=== PATIENT | female | born 1945 | race Caucasian/White ===

== ENCOUNTER → 2017-09-17 07:05 | Outpatient (CLI) | payer OTHER, SELFPAY ==
[2017-09-17 10:21] LABS: Alanine Aminotransferase 33 IU/L (9-52); Aspartate Aminotransferase 36 IU/L (14-36); BUN Creatinine Ratio 25.7 (6-22); Blood Urea Nitrogen 18 mg/dL (7-17); Calcium 9.7 mg/dL (8.4-10.2); Carbon Dioxide 32 mmol/L (22-32); Chloride 100 mmol/L (98-107); Cholesterol 164 mg/dL (140-199); Estimated Glomerular Filt Rate > 60.0 mL/min (>60); Glucose 75 mg/dL (80-110); HDL Cholesterol 68 mg/dL (40-60); HEMOLYSIS < 15 (0-50); LDL Cholesterol Calculated 75 mg/dL (<100); Potassium 4.7 mmol/L (3.4-5.1); Sodium 141 mmol/L (137-145); Triglycerides 106 mg/dL (35-150)
[2017-09-17 10:57] LABS: Vitamin B12 419 pg/mL (239-931)
== END ==
PROVIDERS: PCP Internal Medicine; Visit Provider Internal Medicine
DX: Z00.00 Encounter for general adult medical examination without abnormal findings (principal); E78.5 Hyperlipidemia, unspecified; R20.2 Paresthesia of skin
CPT/HCPCS: 36415; 80048; 80061; 82607; 84450; 84460

== ENCOUNTER → 2017-12-23 11:35 | Outpatient (CLI) | payer OTHER, SELFPAY ==
--- NOTE | 2017-12-23 | DI.MRI.S_ITS ---
PROCEDURE: MR KNEE RT WO CON INDICATIONS: CHRONIC PAIN OF RIGHT KNEE TECHNIQUE: Noncontrast sagittal PD fast spin echo and T2 fast spin echo with fat saturation, sagittal 3-D FLASH with fat saturation; coronal T1 spin echo and PD fast spin echo with fat saturation, and axial PD fast spin echo with fat saturation through the knee. COMPARISON: [facility] [place], CR, XR KNEE ARTHRITIC SERIES RT, 10/15/2017, 15:46. FINDINGS: Image quality: Diagnostic. Bones and joint: There is no acute fracture or dislocation. No suspicious osseous lesions are evident. There is a small moderate-sized knee joint effusion with an associated Sullivan's cyst. Moderate to severe tricompartmental degenerative changes of the knee are best appreciated within the lateral and patellofemoral compartments. A large full-thickness cartilaginous defects are identified with areas of degenerative/reactive marrow change and developing large marginal osteophytes within these 2 compartments. Extensive irregularity of the cartilage within the medial compartment also is present. Spurring of the tibial spines and marginal osteophytes within the femoral notch are also present. Cruciate ligaments: The anterior and posterior cruciate ligaments are intact. Menisci: Extensive tearing of the anterior horn and body of the lateral meniscus is evident. Abnormal signal through the posterior horn of the lateral meniscus is present. There is degenerative signal of the medial meniscus without a discrete medial meniscal tear evident. Medial structures: The medial collateral ligament is intact. Thickening of the medial collateral ligament is suggestive of scarring. The semimembranosus tendon insertion is intact. There may be fluid contained within the distal semimembranosus bursa. The imaged portions of the pes anserinus tendons are unremarkable. No significant fluid is contained within the pes anserinus bursa. Lateral structures: Partial-thickness tearing involving the popliteal tendon origin is noted with associated tendinopathy. The lateral collateral ligament proper (fibular collateral ligament) and the proximal tibiofibular ligaments are intact. The distal aspect of the biceps femoris tendon and the iliotibial band are intact. Anterior structures: The quadriceps and patellar tendons are intact. Thickening and increased signal is identified involving the proximal and distal margins of the patellar tendon. There is again identified within the infrapatellar fat pad. Mild prepatellar bursal edema is also present. IMPRESSION: 1. Moderate to severe degenerative changes of the knee are most pronounced within the medial and patellofemoral compartments. 2. Small moderate-sized knee joint effusion with an associated Sullivan cyst. 3. Complex tearing involving the anterior horn and body of the lateral meniscus. 4. Degenerative signal of the medial meniscus without a discrete tear evident. 5. Over partial-thickness tearing and tendinopathy involving the origin of the popliteal tendon. 6. Mild patellar tendinopathy. 7. Scarring of the medial collateral ligament. Dictated by: Aroldo Shields M.D. on 12/23/2017 at 16:08 Approved by: Aroldo Shields M.D. on 12/23/2017 at 16:13
== END ==
PROVIDERS: PCP Internal Medicine; Visit Provider Orthopaedic Surgery
DX: S83.271A Complex tear of lateral meniscus, current injury, right knee, initial encounter (principal); M17.11 Unilateral primary osteoarthritis, right knee; S86.811A Strain of other muscle(s) and tendon(s) at lower leg level, right leg, initial encounter; M25.561 Pain in right knee; M25.461 Effusion, right knee; M71.21 Synovial cyst of popliteal space [Baker], right knee; G89.29 Other chronic pain
CPT/HCPCS: 73721

== ENCOUNTER → 2018-05-22 15:12 | Outpatient (CLI) | payer MEDICARE, SELFPAY ==
[2018-05-22 15:47] LABS: Add Manual Diff / Slide Review NO; Basophils Absolute Auto 100 /uL (0-100); Basophils Percent Auto 0.8 % (0-2); Eosinophils Absolute Auto 100 /uL (0-450); Eosinophils Percent Auto 1.4 % (2-4); Hematocrit 33.9 % (36-46); Hemoglobin 11.4 g/dL (12.0-16.0); Lymphocytes Absolute Auto 2200 /uL (1100-4500); Lymphocytes Percent Auto 35.3 % (25-40); Mean Corpuscular HGB Conc 33.7 % (30-36); Mean Corpuscular Hemoglobin 30.2 PG (26-34); Mean Corpuscular Volume 89.6 fL (80-100); Monocytes Absolute Auto 700 /uL (0-900); Neutrophils Absolute Auto 3200 /uL (1500-7000); Neutrophils Percent Auto 51.5 % (50-75); Platelet Count 257 X10^3/uL (150-400); Red Blood Cell Count 3.79 X10^6/uL (4.0-5.2); Red Cell Distribution Width 14.3 % (11.6-14.8); White Blood Cell Count 6.2 X10^3/uL (4.5-11.0)
== END ==
PROVIDERS: Family Provider Internal Medicine; PCP Internal Medicine; Visit Provider Physician Assistant Surgical
DX: Z01.812 Encounter for preprocedural laboratory examination (principal)
CPT/HCPCS: 36415; 85025

== ENCOUNTER 2018-06-09 06:13 | Day surgery (SDC) | payer MEDICARE, SELFPAY ==
[2018-05-26 08:49] VITALS: BMI 22.8
[2018-06-09] VITALS (16 sets, daily range): BP systolic 97–133; BP diastolic 47–75; PULSE 62–75; RESP 9–16; TEMP 36.1–36.8; O2SAT 95–100; BMI 22.2
--- NOTE | 2018-06-09 06:00 | DI.RAD.S_ITS ---
PROCEDURE: XR KNEE RT 1TO2V INDICATIONS: post op films TECHNIQUE: 2 view(s) of the knee acquired. COMPARISON: [facility], MR, MR KNEE RT WO CON, 12/23/2017, 11:56. [facility] [place], CR, XR KNEE ARTHRITIC SERIES RT, 10/15/2017, 15:46. FINDINGS: Bones: Patient is status post knee joint arthroplasty. Hardware components are in expected positions. Visualized bony structures are intact. Soft tissues: Overlying postoperative changes are noted. IMPRESSION: Status post knee arthroplasty as above. Dictated by: Lindsay Arrington M.D. on 06/09/2018 at 10:26 Approved by: Lindsay Arrnigton M.D. on 06/09/2018 at 10:26
[2018-06-09] MEDS: ACETAMINOPHEN 325 MG TABLET 975 MG PO ×2 (06:52→20:37)
[2018-06-09] MEDS: CELECOXIB 200 MG CAPSULE PO (06:53)
[2018-06-09] MEDS: PREGABALIN 75 MG CAPSULE PO (06:53)
[2018-06-09] MEDS: LACTATED RINGERS 1,000 ML 42 ML IV ×2 (06:55→10:11)
[2018-06-09] MEDS: VANCOMYCIN 1,000 MG/200 ML FROZ.PIGGY 200 MG IV (06:59)
--- NOTE | 2018-06-09 07:13 | SUR.PREOP ---
pt reports occassionally has numbness in bilateral feet. pt reports Dr. Mcleod aware. At this time, pt reports no numbness.
--- NOTE | 2018-06-09 07:52 | PM.PREOP ---
Pre-operative Note Interval Note History & Physical reviewed/Exam performed by Physician: Yes Changes to H&P: No
--- NOTE | 2018-06-09 07:53 | PM.OP.1 ---
Operative Date/Time/Diagnoses Date of procedure: 06/09/18 Time of procedure: 07:59 Pre-op diagnosis: Severe right knee osteoarthritis Post-op diagnosis: same Procedure & Clinicians Procedure: Right total knee arthroplasty Same procedure as scheduled: Yes Indications: The patient has had progressively worsening right knee pain with radiographic changes consistent with arthritis. Non-operative management has failed and the patient has requested total knee replacement. The risks, benefits and alternatives to surgery were discussed with the patient prior to proceeding. Risks discussed included, but were not limited to, failure to relieve pain, stiffness, infection, nerve damage, deep venous thrombosis, pulmonary embolism, stroke, coma, heart attack, permanent paralysis and , as well as the potential need for eventual revision of the prosthetic. Surgeon: Maricel Mcleod Horticulture/Floriculture Teacher: Linda Ventura Anesthesia Type: General and Spinal Operative Notes Findings: Severe left knee osteoarthritis with valgus deformity, good stability Closure Type: primary Specimen(s): none sent Prosthetic devices, grafts, tissues, transplants, or devices: Mcle[employer] BCS 2 size 5 femur, size 3 tibia, +9 poly, 35 x 7.5 mm oval patella Applied: drain(s) Estimated Blood Loss (mL): 250 Blood products transfused: none Tourniquet time (min): 68 Procedure in detail: The patient was seen in the pre-operative area, where the patient identified the right knee as the operative site and this was marked with my initials. The patient received pre-operative antibiotics, and was taken to the operating room and placed on the operative table in the supine position. After satisfactory anesthesia, a multimedia author out was performed. The right leg was encircled with a tourniquet about the proximal thigh, and the leg was prepared from the toes to the tourniquet with ChloroPrep in the usual fashion and draped through sterile drapes. The leg was elevated and exsanguinated with Eschmark bandage and the tourniquet inflated to [250] mmHg pressure. The knee was approached through an approximately 18 cm incision centered over the patella and carried into the knee through a medial parapatellar arthrotomy. Portion of the medial and lateral meniscus was resected. Soft tissue was carefully mobilized around the patella the patella was measured with a caliper. Bone was resected from the patella and the patellar height was reconstituted with up an appropriate sized patellar component. A cover was then placed on the patella. A small amount of additional medial and lateral meniscus was resected. The visionare guide fit well to the distal femur. It looked like an appropriate distal femoral cut and the cut was made without difficulty. The rotation was assessed and the appropriate size femoral guide was placed on the distal femur and finishing cuts were made. There was no evidence of notching. The anterior, posterior and chamfer cuts were then made. The posterior osteophytes and soft tissues were then removed. The posterior capsule was injected with part of a mixture of 60 ml 0.25% Marcaine mixed with 20 ml Exparel for post operative pain control. The remainder of this mixture was injected into the capsule and subcutaneous tissues during cement curing. The tibia was prepared and the visionaire guide fit well to the distal tibia. The rotation was assessed. The patient was placed in extension residual medial and lateral meniscus as well as any residual bone was carefully resected. [No] additional tibia was resected. Hemostasis was achieved especially posteriorly. Additional local was injected into the posterior capsule. The extension gap was assessed and additional releases for gap balancing were performed as necessary. The femoral component was trial was placed and the notch was finished. Trial tibial and femoral components were then placed and the knee placed through a range of motion. Range of motion was [0-130], with good stability throughout the range. The trials were then removed, and the tibia was finished. The bone was prepared with pulsatile lavage, and dried with a sponge. Cement was applied and the final prosthetics placed. Excess cement was removed during and after cement curing. A brief Betadine soak was performed. After confirming there was no extruded cement posteriorly, the final tibial insert was placed. The knee was copiously irrigated and the tourniquet deflated. Hemostasis was obtained with the [bovie]. A drain was placed and brought out superolaterally. The capsule was closed with interrupted Vicryl. The subcutaneous layer was closed with barbed sutures, and the skin with a running 3-0 V-Lock suture and Surgical glue. An Aquacel Ag dressing was applied and the patient was taken to recovery having tolerated the procedure well. Complications: none Condition: stable Disposition: Acute Care Plan for aftercare: The patient will be maintained on a standard total knee replacement protocol with weight bearing as tolerated. The patient will receive aspirin and sequential compression devices for DVT prophylaxis. The patient will be discharged home when safe for the home environment.
[2018-06-09] MEDS: CEFAZOLIN 2 GM/100 ML FROZ.PIGGY IV ×3 (08:00→23:37)
[2018-06-09] MEDS: TRANEXAMIC ACID 1,000 MG VIAL 1000 MG INJ ×2 (08:00→09:22)
--- NOTE | 2018-06-09 08:18 | SUR.OPER ---
Supine on padded OR bed. Pillow under head, arms secured on padded armboards <90 degree abduction. Safety belt across torso. Non-operative leg secured with tape over blanket over lower leg. Operative leg secured in DeMayo/Shola positioner. Foam padded brace at thigh of operative leg.
[2018-06-09] MEDS: BUPIVACAINE LIPOSOME 266 MG/20 ML VIAL INJ (08:23)
[2018-06-09] MEDS: BUPIVACAINE 0.25% W/ EPI (PF) 10 ML VIAL INJ (08:25)
[2018-06-09] MEDS: POVIDONE-IODINE 15 ML, SODIUM CHLORIDE 0.9% 250 ML TOP (08:28)
[2018-06-09] MEDS: HYDROMORPHONE 2 MG INJ 0.5 MG IV ×2 (10:05→10:14)
--- NOTE | 2018-06-09 10:53 | SUR.PHASEI ---
Stable PACU stay, report called to geetha Centeno transported to room 213 and left in stable condition.
[2018-06-09] MEDS: LACTATED RINGERS 1,000 ML 125 ML IV ×2 (11:32→20:35)
[2018-06-09] MEDS: ONDANSETRON 4 MG/2 ML INJ IV ×2 (11:38→16:27)
[2018-06-09] MEDS: METOCLOPRAMIDE 10 MG/2 ML INJ IV (14:45)
--- NOTE | 2018-06-09 15:13 | PC.NURSE ---
Bladder scan done @ 0116 - 069 cc.
--- NOTE | 2018-06-09 15:54 | PT.IIE ---
Current Diagnoses Unilateral primary osteoarthritis, right knee (06/09/18) Surgery Performed Operation Date: 06/09/18 07:45 Actual Procedures p Total Knee Arthroplasty(Right) - Maricel Mcleod MD Surgical History (Last Updated 05/26/18 @ 09:16 by Renetta Lenz, RN) Hx of arthroscopy of right knee (Acute ~2003) Hx of cholecystectomy (Acute) Hx of dilation and curettage (Acute) Hx of eye surgery (Acute) Hx of eye surgery (Acute ~08/2017) Hx of repair of patent ductus arteriosus (Acute ~1949) Status post bilateral cataract extraction (Acute) History of carpal tunnel repair Status post cholecystectomy Medical History (Last Updated 05/26/18 @ 09:19 by Renetta Lenz RN) BCC (basal cell carcinoma), face (Acute) GERD (gastroesophageal reflux disease) (Acute) HLD (hyperlipidemia) (Acute) HTN (hypertension) (Acute) Hemorrhoids (Acute) Lower back pain (Acute) Neuropathy (Acute) Osteoarthritis (Acute) Prolapsed bladder (Acute) Vertigo (Acute ~2013) Physical Therapy Inpatient Evaluation/Re-Eval M1 PT/OT-IP Prior Functional Status Start: 06/09/18 17:29 Freq: NEEDED Status: Active Protocol: Document 06/09/18 15:54 AB (Rec: 06/09/18 17:40 AB [id number]) Medical Review Prior Functional Status Medical History Reviewed Yes Communication able to make needs known Mobility and Gait pt stated that she is independent with all mobilities and ambulation without AD Social History Household Members spouse Living Arrangements House Number of Floors (Floors) One Floor Number of Stairs To Enter/Railing? 3 steps to enter with R rail ascending Home Environment Standard Height Toilet Walk in Shower Home Equipment Front Wheel Walker Straight Cane Raised Toilet Seat Without Armrests Shower Seat without Backrest Employment Status Retired M2 PT-IP Current Condition Start: 06/09/18 17:29 Freq: NEEDED Status: Active Protocol: Document 06/09/18 15:54 AB (Rec: 06/09/18 17:40 AB [id number]) Physical Therapy Current Condition Current Condition Evaluation Date 06/09/18 Treatment Diagnosis s/p R TKA; difficulty in walking Onset Date 06/09/18 Weight Bearing Status Weight Bearing Status Weight Bear as Tolerated M3 PT-IP Subjective Start: 06/09/18 17:29 Freq: NEEDED Status: Active Protocol: Document 06/09/18 15:54 AB (Rec: 06/09/18 17:40 AB [id number]) Subjective Physical Therapy Visit Type Type Initial Evaluation Visit Start Time 15:54 Visit Stop Time 16:40 Total Visit Minutes 46 Number of FIELD SECRETARY Visits 0 Physical Therapy Visit Comments Patient Comments c/o nausea but agreed to get up Therapy Pain Assessment Pain Present Pain Present Denied Pain M4 PT-IP Mobility and Gait Start: 06/09/18 17:29 Freq: NEEDED Status: Active Protocol: Document 06/09/18 15:54 AB (Rec: 06/09/18 17:40 AB [id number]) PT-Bed Mobility Assessment Supine to Sit Supine to Sit Standby Assistance Sit to Supine Sit to Supine Standby Assistance PT-Transfer Assessment Sit to and From Stand Sit to and from Stand Contact Guard Assistance Equipment Transfer Assistive Device Gait Belt Front Wheeled Walker Orthotic/Prosthetic Devices or Brace: No Transfers Transfer Destination Toilet Transfer Technique pt ambulated using FWW Transfer Ability Level of Assist Minimal Assistance 1 Person Assistance Use of Upper Extremities Gait Assessment Gait Gait Assistance Required: Minimum Assistance Distance (Feet) 10 Able to Maintain Weight Bearing Status Yes During Gait Assistive Devices Assistive Device Gait Belt Front Wheeled Walker Orthotic/Prosthetic Devices or Brace: No Gait Deviations General Gait Pattern Antalgic Factors Limiting Gait Function Factors Limiting Gait Function Decreased Activity Tolerance Decreased Strength Limited Range of Motion Poor Balance Comments Gait Comments pt ambulated to the toilet ~ 10 ft x 2 using FWW min A and cues. pt unable to tolerate much due to c/o nausea and requested to go back to bed. nurse aware. pt agreed to get up with nursing later on if nause is controlled. PT-Balance Assessment Sitting Balance and Reactions Static Sitting Balance Ability Good Dynamic Sitting Balance Ability Good Standing Balance and Reactions Static Standing Balance Ability Fair Dynamic Standing Balance Ability Fair Device Used FWW M5 PT-IP Objective Assessments Start: 06/09/18 17:29 Freq: NEEDED Status: Active Protocol: Document 06/09/18 15:54 AB (Rec: 06/09/18 17:40 AB [id number]) Orientation Orientation/Cognition Level of Alertness Alert Orientation Name Birthday Year Place Situation Language Function Ability No Deficits Noted Safety Awareness Understands Safety Issues Memory Description No Deficits Noted Gross Range of Motion Lower Extremity ROM Assessment Right Impaired Impairments R knee flexion: ~ 80 deg R knee extension: lacking ~ 15 deg to neutral Strength Lower Extremity Strength Assessment Right Impaired Hip 4-/5 Knee 4-/5 Coordination Assessment Gross Coordination Gross Coordination WNL Muscle Tone Muscle Tone WNL Yes M6 PT-IP Treatment Start: 06/09/18 17:29 Freq: NEEDED Status: Active Protocol: Document 06/09/18 15:54 AB (Rec: 06/09/18 17:40 AB [id number]) Physical Therapy Treatment Exercises Exercises Heel Slides Education Education Provided Precautions Weight Bearing Status Post-Op Packet Safety M7 PT-IP Assessment and Plan Start: 06/09/18 17:29 Freq: NEEDED Status: Active Protocol: Document 06/09/18 15:54 AB (Rec: 06/09/18 17:40 AB [id number]) PT Summary Assessment and Plan Potential Rehabilitation Potential Good Status of Condition at Evaluation Evolving Summary Impairments Pain ROM Strength Balance Coordination Sensation Tone Cognition Bed Mobility Transfers Gait Activity Tolerance Assessment Summary pt requiring min A with mobility. pt will likely improve during hospital stay. pt plans to go home and her spouse will assist her. will conduct caregiver training when appropriate as well as stair climbing training. Goals Bed Mobility Goal Independent Transfer Goal Independent Front Wheeled Walker Gait Goal Independent Front Wheel Walker Gait Distance 250 Other Goals up/down 3 steps R rail ascending SBA Days to Meet Goals 3 Frequency of Treatment Frequency Of Treatment Twice a Day Treatment Plan Physical Therapy Treatment Plan Bed Mobility Training Transfer Training Gait Training Therapeutic Exercise Balance Retraining Post Op Education Discharge Planning Hot or Cold Pack Neuromuscular Re-ed Coordination Retraining Manual Therapy Other Recommendations and Next Treatment ambulation, stair climbing, Focus caregiver training. Recommendations To Nursing Amount of Assist Needed 1 Person Assist Discharge Recommendations PT Discharge Recommendations Home with Assistance Outpatient PT
[2018-06-09] MEDS: ATORVASTATIN 20 MG TABLET 40 MG PO (20:36)
[2018-06-09] MEDS: DOCUSATE 100 MG CAPSULE PO (20:36)
[2018-06-09] MEDS: ASPIRIN EC 81 MG TABLET PO (20:36)
[2018-06-10 00:42] VITALS: BP 131/63; PULSE 77; RESP 16; TEMP 36.3; O2SAT 98
--- NOTE | 2018-06-10 02:12 | PC.NURSE ---
2300- Pt POD#0 R total knee w/ aquasil drsg, dk bandage in place & hemovac. Denies any pain at this time; CMS intact; normal sensation on R side. Tolerating regular diet at this time; LR running as ordered. Pt had to be straight cath'd at 2130 per previous RN, w/ /800cc out. Will cont to monitor output. 0330- Pt urinated in bathroom w/o difficulty. See flowsheet for details. Denies any pain.
[2018-06-10] MEDS: LACTATED RINGERS 1,000 ML 125 ML IV (05:08)
[2018-06-10 05:25] VITALS: BP 132/70; PULSE 66; RESP 16; TEMP 36.5; O2SAT 97
[2018-06-10 06:03] LABS: Hematocrit 32.9 % (36-46)
[2018-06-10 08:43] VITALS: BP 118/69; PULSE 73
[2018-06-10] MEDS: LISINOPRIL 20 MG TABLET PO (08:43)
[2018-06-10] MEDS: DOCUSATE 100 MG CAPSULE PO (08:43)
[2018-06-10] MEDS: MELOXICAM 7.5 MG TABLET 15 MG PO (08:44)
[2018-06-10] MEDS: ACETAMINOPHEN 325 MG TABLET 975 MG PO (08:44)
[2018-06-10] MEDS: ASPIRIN EC 81 MG TABLET PO (08:44)
[2018-06-10] MEDS: CHOLECALCIFEROL (VITAMIN D3) 1,000 UNIT TABLET 1000 UNIT PO (08:44)
[2018-06-10 08:45] VITALS: BP 118/69; PULSE 73; RESP 16; TEMP 36.6; O2SAT 99
--- NOTE | 2018-06-10 08:48 | P.DS_ITS ---
History of Present Illness Date Patient Seen: 06/10/18 Time Patient Seen: 08:48 Chief complaint: [id number] Right Total Knee Arthroplasty Narrative: 72 year old female who is POD #right total knee arthroplasty. She had some issues with nausea overnight that have resolved and was able to tolerate breakfast. Her pain has been well controlled. She has ambulated around the room with minimal difficulty. She had some difficulty voiding overnight and required in and out catheterization, but has voided independently several times since. No chest pain, shortness of breath or calf tenderness. Discharge Providers Date of admission: 06/09/18 06:13 Discharge Date: 06/10/18 Primary care physician: Amanda Hunter MD Consults: 05/26/18 09:32 Consult to Pastoral Services Routine Comment: RT TKA 06/0906/09/18 06:00 Consult to Anesthesiology Routine Comment: Consulting Provider: Anesthesiologist Reason for consultation: Regional block for post operative pain control 06/09/18 11:04 Consult to Discharge Planning Routine Comment: Consult to Discharge Planning Routine Comment: Consult to Physical Therapy Evaluate & Treat Comment: Physician Instructions: post op ADRIANNA protocol Consult to Physical Therapy Evaluate & Treat Comment: Physician Instructions: postop TKA protocol Consult to Respiratory Therapy Evaluate & Treat Comment: Physician Instructions: Evaluate and treat Consult to Respiratory Therapy Evaluate & Treat Comment: Physician Instructions: Evaluate and treat 06/09/18 13:38 Consult to Dietitian, Adult Routine Comment: Reason For Exam: unintended weight loss 15pounds/2yrs Consult to Pastoral Services Routine Comment: Yazdanism Discharge provider: Heather Lees PA-C Summary Discharge Diagnosis: s/p right total knee arthroplasty Hospital Course: The patient has had progressively worsening right knee pain with radiographic changes consistent with arthritis. Non-operative management has failed and the patient has requested total knee replacement. The risks, benefits and alternatives to surgery were discussed with the patient prior to proceeding. Risks discussed included, but were not limited to, failure to relieve pain, stiffness, infection, nerve damage, deep venous thrombosis, pulmonary embolism, stroke, coma, heart attack, permanent paralysis and , as well as the potential need for eventual revision of the prosthetic. After informed consent patient was brought to the operating room on 06/09 for right total knee arthroplasty. She has been progressing well in the post operative period. She has been mobilizing well in the room and anticipate she will as well with PT this morning. She has had some nausea with Oxycodone so script given for Tramadol at discharge. All other medications patient has good supply of at home. She has good support at home with as relationship executive. Status at Discharge Cognitive/behavioral status at discharge: oriented Functional status at discharge: uses cane/walker Overall status at discharge: patient is progressing back to baseline Exam Vital Signs (past 8 hours): - 06/10/18 05:25 06/10/18 08:45 Temperature 97.7 F 97.8 F Pulse Rate 66 73 Respiratory Rate 16 16 Blood Pressure 132/70 118/69 Pulse Oximetry 97 99 Oxygen Delivery Method Room Air Oxygen Flow Rate 0 Narrative Exam Narrative: 72 year old female sitting comfortably in a chair in no acute distress, alert and oriented. Dressing in place over right knee is clean, dry and intact. Hemovac in place with 80cc drainage overnight. Able to lift the leg and full AROM in the foot. Sensation intact in distal extremity with 2+ distal pulses. Objective Labs Result Diagrams: 06/10/18 05:18 Labs: Laboratory Results - last 24 hr 06/10/18 05:18 Hgb 11.0 L Hct 32.9 L Discharge Plan Discharge Plan Patient Disposition: Home Discharge comment: Home after PT today Discharge Med Rec/Prescriptions Prescriptions: New acetaminophen 325 mg Tablet 975 mg PO TID Qty: 60 RF: 0 aspirin 81 mg Tablet,Delayed Release (Dr/Ec) 81 mg PO BID Qty: 60 RF: 0 docusate sodium 100 mg Capsule 100 mg PO BID Qty: 60 RF: 0 tramadol 50 mg tablet 50 mg PO Q8H Qty: 20 RF: 0 Continued atorvastatin 40 mg Tablet 40 mg PO BEDTIME RF: 0 meloxicam 15 mg Tablet 15 mg PO QPM RF: 0 lisinopril 20 mg Tablet 20 mg PO DAILY RF: 0 ranitidine HCl 150 mg Capsule 150 mg PO BEDTIME RF: 0 cholecalciferol (vitamin D3) [Vitamin D3] 1,000 unit Capsule 1,000 unit PO DAILY RF: 0 coenzyme Q10 [Co Q-10] 200 mg Capsule 1,000 mg PO DAILY RF: 0 omega [id number]-fish oil [Fish Oil] 1,000 mg (120 mg-180 mg) Capsule 1 cap PO DAILY RF: 0 Follow up/Referrals: Maricel Mcleod MD [Physician] - Provider Discharge Instructions Diet: Diet as Tolerated and Regular Activity: Weight bear as tolerated. Cold/Heat Therapy: Ice packs as needed. Skin/Wound/Dressing Care Report to your healthcare provider any signs of infection, such as:: chills, fever, night sweats, increased pain and unusual drainage Dressing: Leave dressing in place, will be removed at 2 weeks post op visit. Other wound treatment: Follow [employer] guide. Visit Report/Discharge Packet Instructions: DI for Knee Replacement Discharge Data Primary Care Provider: Amanda Hunter Attending Provider: Maricel Mcleod Admit Date/Time: 06/09/18 06:13 Quality VTE Deep Vein Thrombosis/Pulmonary Embolism Present on Admission: No
--- NOTE | 2018-06-10 09:30 | PT.IPTN ---
Current Diagnoses Unilateral primary osteoarthritis, right knee (06/09/18) Surgery Performed Operation Date: 06/09/18 07:45 Actual Procedures p Total Knee Arthroplasty(Right) - Maricel Mcleod MD Physical Therapy Treatment Note M2 PT-IP Current Condition Start: 06/09/18 17:29 Freq: NEEDED Status: Active Protocol: Document 06/09/18 15:54 AB (Rec: 06/09/18 17:40 AB [id number]) Physical Therapy Current Condition Current Condition Evaluation Date 06/09/18 Treatment Diagnosis s/p R TKA; difficulty in walking Onset Date 06/09/18 Weight Bearing Status Weight Bearing Status Weight Bear as Tolerated M3 PT-IP Subjective Start: 06/09/18 17:29 Freq: NEEDED Status: Active Protocol: Document 06/10/18 09:30 GGD (Rec: 06/10/18 10:46 GGD [email or web address]) Subjective Physical Therapy Visit Type Type Treatment Note Visit Start Time 09:00 Visit Stop Time 09:30 Total Visit Minutes 30 Number of MINISTER Visits 1 Physical Therapy Visit Comments Patient Comments Pt states she hopes to go home . M4 PT-IP Mobility and Gait Start: 06/09/18 17:29 Freq: NEEDED Status: Active Protocol: Document 06/10/18 09:30 GGD (Rec: 06/10/18 10:46 GGD [email or web address]) PT-Transfer Assessment Sit to and From Stand Sit to and from Stand Contact Guard Assistance Equipment Transfer Assistive Device Gait Belt Front Wheeled Walker Orthotic/Prosthetic Devices or Brace: No Transfers Transfer Destination Chair Transfer Ability Level of Assist Contact Guard Assistance Use of Upper Extremities Gait Assessment Gait Gait Assistance Required: Contact Guard Assist Distance (Feet) 220 Able to Maintain Weight Bearing Status Yes During Gait Assistive Devices Assistive Device Gait Belt Front Wheeled Walker Orthotic/Prosthetic Devices or Brace: No Gait Deviations General Gait Pattern Antalgic Factors Limiting Gait Function Factors Limiting Gait Function Decreased Activity Tolerance Decreased Strength Limited Range of Motion Stair Climbing Assessment Evaluation Level of Assist On Stairs Contact Guard Assistance Devices Stair Climbing Assistive Devices Straight Cane Right Railing Technique/Endurance Stair Climbing Direction Ascend and Descend Stair Climbing Technique Step to Step Number of Steps Climbed 3 Query Text: Stair Climbing Set # Repetitions (reps) 1 M5 PT-IP Objective Assessments Start: 06/09/18 17:29 Freq: NEEDED Status: Active Protocol: Document 06/09/18 15:54 AB (Rec: 06/09/18 17:40 AB [id number]) Orientation Orientation/Cognition Level of Alertness Alert Orientation Name Birthday Year Place Situation Language Function Ability No Deficits Noted Safety Awareness Understands Safety Issues Memory Description No Deficits Noted Gross Range of Motion Lower Extremity ROM Assessment Right Impaired Impairments R knee flexion: ~ 80 deg R knee extension: lacking ~ 15 deg to neutral Strength Lower Extremity Strength Assessment Right Impaired Hip 4-/5 Knee 4-/5 Coordination Assessment Gross Coordination Gross Coordination WNL Muscle Tone Muscle Tone WNL Yes M6 PT-IP Treatment Start: 06/09/18 17:29 Freq: NEEDED Status: Active Protocol: Document 06/10/18 09:30 GGD (Rec: 06/10/18 10:46 GGD [email or web address]) Physical Therapy Treatment Exercises Exercises Ankle Pumps Quad Sets Short Arc Quads Seated Knee Flexion/Extension M7 PT-IP Assessment and Plan Start: 06/09/18 17:29 Freq: NEEDED Status: Active Protocol: Document 06/10/18 09:30 GGD (Rec: 06/10/18 10:46 GGD [email or web address]) PT Summary Assessment and Plan Summary Assessment Summary Pt improving with mobility. She was able to progress gait distance. She was safe with stair mobility. Pt safe for D/ C home when medically stable. Frequency of Treatment Frequency Of Treatment Twice a Day Treatment Plan Physical Therapy Treatment Plan Bed Mobility Training Transfer Training Gait Training Therapeutic Exercise Balance Retraining Post Op Education Discharge Planning Hot or Cold Pack Neuromuscular Re-ed Coordination Retraining Manual Therapy Recommendations To Nursing Amount of Assist Needed 1 Person Assist Discharge Recommendations PT Discharge Recommendations Home with Assistance Outpatient PT
--- NOTE | 2018-06-10 10:44 | PC.NURSE ---
Hemovac D/C ; intact; pressure to hemostasis; applied 2x2 folded in fourths; tegaderm; dk wrap re-secured; ice pack applied
--- NOTE | 2018-06-10 10:53 | PC.NURSE ---
Kirsten is progressing with PT. Her pain is adq. controlled with plain tylenol and Mobic, plus ice packs. She is voiding and taking foods and fluids. Her hemovac has been removed. Anticipate disch. this AM.
--- NOTE | 2018-06-10 12:10 | DIET.PN ---
Consult requested r/t 15# wt loss in 2 years. Pt reports she has lost wt, not really intentionally, but attributes the wt loss to eating better and increased exercise. She and spouse stay in [place] for 4 mo/year and are always very active while there. when returns to [facility] does [employer] class 2/wk + water aerobics. Dx: tot knee BMI 22 Assessment: Appears well. Usual diet appears well balanced and adequate. Wt change r/t increased physical activity. Current wt is same as usual wt as young adult. Intervention: none at this time.
--- NOTE | 2018-06-11 08:53 | CM.IDA ---
Late Entry Pt is a 72 yo female, resident of [place]. She was DC on 06.10.18, [facility] [place], POD#1 from rt knee surgery w/ Dr Mcleod. PCP: Dr Amanda Hunter Payer: Medicare/[employer]. Pt discussed in multidisciplinary rounds Friday morning, no barriers indicated to safe return home as she had planned. Therapy evals were done and pt was cleared to return home w/assist and outpt PT. CATRACHITO Collins
== END 2018-06-10 13:10 | disposition home or self-care (01) ==
LOC: AC 06-10 08:48 → OR 06-10 13:26
PROVIDERS: Family Provider Internal Medicine; PCP Internal Medicine; Visit Provider Orthopaedic Surgery
PROC: 0SRC0JZ Replacement of Right Knee Joint with Synthetic Substitute, Open Approach (ICD-10-PCS; CPT 27447; principal; 2018-06-09 07:45)
DX: M17.11 Unilateral primary osteoarthritis, right knee (principal); I10 Essential (primary) hypertension
CPT/HCPCS: 27447; 36415; 73560; 85014; 85018; 94762; 97116; 97162; 97530; C1776; C9290; J0690; J1100; J1170; J2250; J2274; J2405; J2704; J2765; J3010; J3370

== ENCOUNTER → 2018-12-22 14:08 | Outpatient (ROUT) | payer MEDICARE, SELFPAY ==
[2018-06-09 13:35] VITALS: BMI 22.2
[2018-12-22 14:38] LABS: Alanine Aminotransferase 23 IU/L (<35); Aspartate Aminotransferase 40 IU/L (14-36); BUN Creatinine Ratio 22.5 (6-22); Blood Urea Nitrogen 18 mg/dL (7-17); Calcium 9.7 mg/dL (8.4-10.2); Carbon Dioxide 31 mmol/L (22-32); Chloride 101 mmol/L (98-107); Cholesterol 165 mg/dL (140-199); Estimated Glomerular Filt Rate > 60.0 mL/min (>60); Glucose 80 mg/dL (80-110); HDL Cholesterol 61 mg/dL (40-60); HEMOLYSIS < 15 (0-50); LDL Cholesterol Calculated 90 mg/dL (<100); Potassium 4.5 mmol/L (3.4-5.1); Sodium 139 mmol/L (137-145); Triglycerides 71 mg/dL (35-150)
== END ==
PROVIDERS: Family Provider Internal Medicine; PCP Internal Medicine; Visit Provider Internal Medicine
DX: E78.5 Hyperlipidemia, unspecified (principal); I10 Essential (primary) hypertension
CPT/HCPCS: 80048; 80061; 84450; 84460

== ENCOUNTER → 2019-08-02 08:10 | Outpatient (CLI) | payer MEDICARE, SELFPAY ==
[2018-06-09 13:35] VITALS: BMI 22.2
[2019-08-02 08:58] LABS: WBC Urine None Seen (0-5/HPF)
[2019-08-02 09:57] LABS: Add Manual Diff / Slide Review NO; Basophils Absolute Auto 100 /uL (0-100); Basophils Percent Auto 0.9 % (0-2); Eosinophils Absolute Auto 100 /uL (0-450); Eosinophils Percent Auto 1.3 % (2-4); Hematocrit 36.9 % (36-46); Hemoglobin 12.3 g/dL (12.0-16.0); Lymphocytes Absolute Auto 1600 /uL (1100-4500); Lymphocytes Percent Auto 28.2 % (25-40); Mean Corpuscular HGB Conc 33.4 % (30-36); Mean Corpuscular Hemoglobin 30.4 PG (26-34); Mean Corpuscular Volume 91.1 fL (80-100); Monocytes Absolute Auto 600 /uL (0-900); Monocytes Percent Auto 11.2 % (3-14); Neutrophils Absolute Auto 3300 /uL (1500-7000); Neutrophils Percent Auto 58.4 % (50-75); Platelet Count 275 X10^3/uL (150-400); Red Blood Cell Count 4.05 X10^6/uL (4.0-5.2); Red Cell Distribution Width 14.4 % (11.6-14.8); White Blood Cell Count 5.7 X10^3/uL (4.5-11.0)
[2019-08-02 10:20] LABS: BUN Creatinine Ratio 28.4 (6-22); Blood Urea Nitrogen 19 mg/dL (7-17); Calcium 9.8 mg/dL (8.4-10.2); Carbon Dioxide 32 mmol/L (22-32); Chloride 102 mmol/L (98-107); Estimated Glomerular Filt Rate > 60.0 mL/min (>60); Glucose 72 mg/dL (80-110); HEMOLYSIS < 15 (0-50); Potassium 4.5 mmol/L (3.4-5.1); Sodium 139 mmol/L (137-145)
[2019-08-02 11:29] LABS: Appearance Urine UA CLEAR; Bilirubin Urine UA NEGATIVE (NEGATIVE); Color Urine UA YELLOW; Glucose Urine UA NEGATIVE (Negative); Ketones Urine UA NEGATIVE (NEGATIVE); Leukocyte Esterase Urine UA NEGATIVE (NEGATIVE); Nitrite Urine UA NEGATIVE (Negative); Occult Blood Urine UA TRACE-LYSED (Negative); Protein Urine UA NEGATIVE (Negative); Specific Gravity Urine UA <=1.005 (1.000-1.035); Urobilinogen Urine UA 0.2 E.U./dL (0.2)
[2019-08-02 11:57] LABS: Bacteria Urine Few (2-10); RBC Urine 0-1/HPF (0-5/HPF)
[2019-08-02 11:58] LABS: Culture Indicated Urine Cult Not Indicated
== END ==
PROVIDERS: Family Provider Internal Medicine; PCP Internal Medicine; Referring Provider Orthopaedic Surgery; Visit Provider Orthopaedic Surgery
DX: Z01.818 Encounter for other preprocedural examination (principal); Z01.812 Encounter for preprocedural laboratory examination; R73.9 Hyperglycemia, unspecified; N39.0 Urinary tract infection, site not specified
CPT/HCPCS: 36415; 80048; 81001; 83036; 85025; 93005

== ENCOUNTER → 2019-08-07 09:14 | Outpatient (CLI) | payer MEDICARE, SELFPAY ==
[2018-06-09 13:35] VITALS: BMI 22.2
[2019-08-08 10:34] LABS: COVID19 Sendout Not Detected (Not Detect)
== END ==
PROVIDERS: Family Provider Internal Medicine; PCP Internal Medicine; Visit Provider Physician Assistant
DX: Z01.812 Encounter for preprocedural laboratory examination (principal)
CPT/HCPCS: 87635

== ENCOUNTER 2019-08-10 06:40 | Day surgery (SDC) | payer MEDICARE, SELFPAY ==
[2018-06-09 13:35] VITALS: BMI 22.2
[2019-08-04 11:54] VITALS: BMI 22.7
[2019-08-10] VITALS (18 sets, daily range): BP systolic 93–134; BP diastolic 42–75; PULSE 65–77; RESP 12–18; TEMP 36.1–37; O2SAT 95–100; BMI 22.7
[2019-08-10] MEDS: ACETAMINOPHEN 325 MG TABLET 975 MG PO (06:58)
[2019-08-10] MEDS: CELECOXIB 200 MG CAPSULE PO (06:58)
[2019-08-10] MEDS: VANCOMYCIN 1,000 MG/200 ML PIGGYBACK 200 MG IV (07:05)
[2019-08-10] MEDS: LACTATED RINGERS 1,000 ML 42 ML IV (07:05)
--- NOTE | 2019-08-10 07:47 | PM.PREOP ---
Pre-operative Note COVID-19 COVID-19 status: Negative Interval Note History & Physical reviewed/Exam performed by Physician: Yes Changes to H&P: No
--- NOTE | 2019-08-10 07:48 | P.OP_ITS ---
Operative Date/Time/Diagnoses Date of procedure: 08/10/19 Time of procedure: 07:59 Pre-op diagnosis: right hip osteoarthritis Post-op diagnosis: same Procedure & Clinicians Procedure: Right total hip arthroplasty anterior approach Same procedure as scheduled: Yes Indications: The patient has had progressively worsening right hip pain with r adiographic changes consistent with arthritis. Non-operative management has failed and the patient has requested total hip replacement. The risks, benefits and alternatives to surgery were discussed with the patient prior to proceeding. Risks discussed included, but were not limited to, failure to relieve pain, leg length discrepancy, dislocation, stiffness, infection, nerve damage, deep venous thrombosis, pulmonary embolism, stroke, coma, heart attack, permanent paralysis and , as well as the potential need for eventual revision of the prosthetic. Surgeon: Maricel Mcleod Senior Information Security Analyst: Juan Cristina Anesthesia Type: General and Spinal Operative Notes Findings: Severe right hip osteoarthritis, soft bone, good stability Closure Type: primary Specimen(s): none sent Prosthetic devices, grafts, tissues, transplants, or devices: Mcleod and Nephew 54 mm R3 cup, size 4 anthology stem, +0 head Estimated Blood Loss (mL): 250 Procedure in detail: The patient was brought to the operating room. Patient was carefully positioned in the supine position. Time-out was performed and antib iotics were given. Anesthesia was induced. She was positioned in the on the table in order to allow hyperextension of the hip. The right lower extremity was prepped and draped in a standard sterile fashion. An anterior right hip incision was made 1 fingerbreadth lateral to the anterior superior iliac spine and extended distally towards the greater trochanter. Dissection was carried out through skin and subcutaneous tissues. The skin and subcutaneous tissues were carefully injected with Lidocaine with epi. Superficial hemostasis was achieved. The fascia over the tensor fascia yovany was defined and incised with a knife. Two Allis clamps were used to grasp the fascia. Tensor fascia yovany was retracted laterally. A gelpi retractor was placed. Dissection was carried out down along the neck. The circumflex vessels were carefully identified and cauterized with the Aqua Mantis. There was good visualization of the femoral neck. A Cobra was placed superior to the neck and the gluteus fibers were carefully stripped from that superior aspect of the capsule. A 2nd retractor was placed along the inferior aspect of the neck. The rectus insertion along the capsule was partially released. A 3rd retractor that was then gently placed over the rim of the acetabulum under the rectus. Capsule was carefully incised and released from the intertrochanteric line circumferentially superior to the mid sagittal line and inferiorly to the mid sagittal line until the lesser trochanter was palpable. A tag stitch was placed both in the superior and inferior limb of the capsular insertion. Along the acetabulum capsule was also released up to the mid sagittal 12:00 position. A portion of the labrum was resected. A saw was used to perform an osteotomy at the level of the intertrochanteric line and the junction of the superior femoral neck leaving approximately 1 finger breath of residual inferior neck above the lesser trochanter. A 2nd cut was made along the femoral neck at the base of the head and a napkin ring of neck was removed. Corkscrew was placed in the femoral head and the head was removed without difficulty. Retractors were then repositioned around the acetabulum. Residual labrum was resected and additional osteophytes were removed. A reamer that was 4 mm below the templated size was placed by hand in the acetabulum and it was reamed to centralize the acetabulum. It was then reamed up to 2 under the templated size and fluoroscopy was brought in to confirm the position of the reaming and depth of reaming. A trial cup was placed and noted that it was appropriately sized and fluoroscopy confirmed position and depth. The component was open and inserted without difficulty fluoroscopic imaging was used to confirm that the cup had been adequately seated and was well positioned. It was further stabilized with a single screw. Neutral poly liner was placed. The cup was tested and noted to be stable. Attention was then directed to the femur. The femur was gently hyperextended additional capsular release was performed as needed in order to allow adequate visualization of the proximal femur with elevation of the femur. Patient was placed in a hyperextended slightly adducted position with maximum external rotation. Box osteotome was used to check for any residual neck as well as sclerotic bone along the trochanter. Adona pepper was placed in the femur. Addit ional broaching was performed. Canal finder was used to determine the alignment of the canal and position. Size 1 broach was placed. The canal was then appropriately broached up to the templated size as long as there was adequate stability of the broach and serial advancement of the broach without excessive impingement. Specific attention was directed at avoiding varus attempting to direct the distal aspect of the broach more anteriorly and avoiding excessive anteversion. Trial reduction showed acceptable range of motion, good stability, no posterior impingement, scientologist of leg length and appropriate lateral shuck. I also hyperflexed the hip and checked that there was no impingement anteriorly and there was good stability with flexion, adduction and internal rotation. Marcaine and Exparel were injected. The stem was placed without difficulty. Repeat trial reduction and x-ray showed acceptable overall position, length, and no evidence of the femoral fracture. Final head was placed. Wound was meticulously irrigated with normal saline. The hip was reduced and additional Exparel and Marcaine were injected. The capsule was closed with interrupted nonabsorbable sutures. The fascia of the tensor was closed with interrupted and running Vicryl. No drain was placed. Any tensor fascia yovany muscle that appeared to be contused or injured which was a minimal amount was carefully resected. Capsule around the tensor was injected with Exparel and Marcaine. The skin was closed with barbed stitches for the subcutaneous tissue and skin. We also used surgical glue. The wound was dressed sterilely. Brief Betadine soak was also used and was meticulously irrigated with normal saline. Patient was transferred to recovery room in satisfactory condition. Complications: none Post-operative Condition: stable Disposition: Acute Care Plan for aftercare: The patient will be maintained on a standard total hip replacement protocol with weight bearing as tolerated and anterior hip precautions. The patient will receive Aspirin and sequential compression devices for DVT prophylaxis. The patient will be discharged home when safe for the home environment.
[2019-08-10] MEDS: CEFAZOLIN 2 GM/100 ML FROZ.PIGGY IV ×3 (08:10→23:53)
[2019-08-10] MEDS: TRANEXAMIC ACID 1,000 MG VIAL 1000 MG INJ ×2 (08:15→10:24)
--- NOTE | 2019-08-10 08:30 | SUR.OPER ---
Supine, head on pillow, torso on pink pad positioner. Iliac crest at flex of foot end of table. Gel roll under operative hip. Both arms secured on arm boards <90 degrees abduction.
[2019-08-10] MEDS: BUPIVACAINE 0.25% W/ EPI 30 ML VIAL 60 ML INJ (08:36)
[2019-08-10] MEDS: BUPIVACAINE LIPOSOME 266 MG/20 ML VIAL INJ (08:37)
[2019-08-10] MEDS: SODIUM CHLORIDE IRRIG SOLUTION 250 ML, EPINEPHrine 1 MG IRR (08:38)
[2019-08-10] MEDS: SODIUM CHLORIDE IRRIG SOLUTION 250 ML, POVIDONE-IODINE SPONGE STICKS 1 APPLIC IRR (08:39)
--- NOTE | 2019-08-10 10:30 | DI.RAD.S_ITS ---
PROCEDURE: XR HIP W PEL IF DONE RT 2V INDICATIONS: POST OPERATIVE TOTAL RIGHT HIP TECHNIQUE: AP pelvis and lateral view of the right hip acquired. COMPARISON: [facility], [facility], XR HIP W PEL IF DONE RT 4V, 08/10/2019, 9:11. FINDINGS: Bones: Patient is status post right hip arthroplasty, with hardware components in expected positions. The hip joint appears congruent. The visualized bony structures appear intact. Soft tissues: Overlying postoperative changes are noted. No suspicious soft tissue densities. IMPRESSION: Postsurgical changes from right total hip arthroplasty with anatomic right hip alignment. Dictated by: Atilio Wilde M.D. on 08/10/2019 at 11:21 Approved by: Atilio Wilde M.D. on 08/10/2019 at 11:21
--- NOTE | 2019-08-10 10:30 | DI.RAD.S_ITS ---
PROCEDURE: XR HIP W PEL IF DONE RT 4V INDICATIONS: TOTAL RIGHT HIP ARTHROPLASTY TECHNIQUE: Multiple intraoperative view(s) of the hip acquired. COMPARISON: None. FINDINGS: Multiple intraoperative images of the right hip were acquired. Patient is status post right total hip arthroplasty, with hardware components in expected positions. The hip joint appears congruent. The visualized bony structures appear intact. IMPRESSION: Status post right total hip arthroplasty. No gross hardware complications. Dictated by: Radhames Tyson M.D. on 08/10/2019 at 11:06 Approved by: Radhames Tyson M.D. on 08/10/2019 at 11:08
--- NOTE | 2019-08-10 11:59 | PC.NURSE ---
Patient alert, oriented denies pain and nausea. CMS+ RLE, scd's on, patient oriented to room and call light. Last void per patient was at 0530 this morning.
[2019-08-10] MEDS: LACTATED RINGERS 1,000 ML 125 ML IV ×2 (12:42→20:46)
[2019-08-10] MEDS: IBUPROFEN 400 MG TABLET PO ×3 (12:43→20:55)
--- NOTE | 2019-08-10 14:13 | PT.IIE ---
Current Diagnoses Unilateral primary osteoarthritis, right hip (08/10/19) Surgery Performed Operation Date: 08/10/19 07:45 Actual Procedures p Total Hip Arthroplasty/Anterior Approach(Right) - Maricel Mcleod MD Surgical History (Last Updated 08/04/19 @ 12:01 by Renetta Lenz RN) History of arthroplasty of right knee (Acute 06/09/18) History of carpal tunnel repair Hx of arthroscopy of right knee (Acute ~2003) Hx of cholecystectomy (Acute) Hx of dilation and curettage (Acute) Hx of eye surgery (Acute) Hx of eye surgery (Acute ~08/2017) Hx of repair of patent ductus arteriosus (Acute ~1949) Status post arthroscopy (Deleted) Status post bilateral cataract extraction (Acute) Status post cholecystectomy Medical History (Last Updated 11/11/18 @ 16:52 by Mary Jo Giles MD) BCC (basal cell carcinoma), face (Acute) GERD (gastroesophageal reflux disease) (Acute) Hemorrhoids (Acute) HLD (hyperlipidemia) (Acute) HTN (hypertension) (Acute) Lower back pain (Acute) Neuropathy (Acute) Osteoarthritis (Acute) Prolapsed bladder (Acute) Uterovaginal prolapse (Acute) Vertigo (Acute ~2013) Physical Therapy Inpatient Evaluation/Re-Eval M1 PT/OT-IP Prior Functional Status Start: 08/10/19 15:51 Freq: NEEDED Status: Active Protocol: Document 08/10/19 14:13 AB (Rec: 08/10/19 16:05 [email or web address]) Medical Review Prior Functional Status Medical History Reviewed Yes Communication able to make needs known Mobility and Gait pt stated that she is independent with all mobilities and ambulation without AD but uses her walking sticks for long distance walks Social History Household Members spouse Living Arrangements House Number of Floors (Floors) One Floor Number of Stairs To Enter/Railing? 3 steps to enter with R rail ascending Home Environment Standard Height Toilet,Walk in Shower Home Equipment Front Wheel Walker,Straight Cane,Raised Toilet Seat w/ Armrests,Hand Held Shower M2 PT-IP Current Condition Start: 08/10/19 15:51 Freq: NEEDED Status: Active Protocol: Document 08/10/19 14:13 AB (Rec: 08/10/19 16:05 AB [email or web address]) Physical Therapy Current Condition Current Condition Evaluation Date 08/10/19 Treatment Diagnosis s/p R ADRIANNA anterior approach; difficulty in walking Onset Date 08/10/19 Precautions Anterior Hip Precautions No Hip Extension,No Hip External Rotation Weight Bearing Status Weight Bearing Status Weight Bear as Tolerated Allowed Weight Bearing Amount (enter % RLE WBAT or #) (%) M3 PT-IP Subjective Start: 08/10/19 15:51 Freq: NEEDED Status: Active Protocol: Document 08/10/19 14:13 AB (Rec: 08/10/19 16:05 AB [id number]) Subjective Physical Therapy Visit Type Type Initial Evaluation Visit Start Time 14:13 Visit Stop Time 14:59 Total Visit Minutes 46 Number of PACKING MACHINE FEEDER Visits 0 Physical Therapy Visit Comments Patient Comments pt agreeable to do PT Therapy Pain Assessment Pain When Pain Assessed At Rest Pain Present Pain Present Pain Reported Location Right Hip Intensity 5 Scale Used Numeric (0 - 10) Pain Management Techniques Apply Cold,Distraction, Modification of Treatment,Re- positioning,Timing of Activity with Medications M4 PT-IP Mobility and Gait Start: 08/10/19 15:51 Freq: NEEDED Status: Active Protocol: Document 08/10/19 14:13 AB (Rec: 08/10/19 16:05 AB [id number]) PT-Bed Mobility Assessment Supine to Sit Supine to Sit Moderate Assistance,1 Person Assistance Sit to Supine Sit to Supine Minimal Assistance,1 Person Assistance PT-Transfer Assessment Sit to and From Stand Sit to and from Stand Minimal Assistance,1 Person Assistance,Use of Upper Extremities Equipment Transfer Assistive Device Gait Belt,Front Wheeled Walker Orthotic/Prosthetic Devices or Brace: No Transfers Transfer Destination Toilet Transfer Technique ambulated using FWW Transfer Ability Level of Assist Minimal Assistance,1 Person Assistance,Use of Upper Extremities Comments Mobility Comments reviewed hip precautions with pt. BP supine: 107/68. completed supine to sit mod A and max cues. pt was able to sit on EOB SBA. c/o slight lightheadedness. BP sittin/70. pt completed sit to stand min A and cues and ambulated to the toilet min A using FWW. pt was able to completed sit to stand from the toilet using grab bar min A and ambulated towards the sink using FWW min A. pt was able to maintain standing using counter for support CGA while completing handwashing. pt requested to just go back to bed and stated that she is starting to get a little bit more pain on the hip. pt ambulated back to the bed using FWW min A. completed sit to supine min A and max cues. positioned pt on the bed. call light and table placed within reach. Gait Assessment Gait Gait Assistance Required: Minimum Assistance Distance (Feet) 12 Able to Maintain Weight Bearing Status Yes During Gait Assistive Devices Assistive Device Gait Belt,Front Wheeled Walker Orthotic/Prosthetic Devices or Brace: No Gait Deviations General Gait Pattern Antalgic,Decreased Stride Length,Decreased Feet Clearance Factors Limiting Gait Function Factors Limiting Gait Function Decreased Activity Tolerance, Decreased Strength,Difficulty Following Directions,Limited Range of Motion,Pain,Poor Balance,Poor Safety Awareness Comments Gait Comments pls refer to mobility section for details PT-Balance Assessment Sitting Balance and Reactions Static Sitting Balance Ability Good Dynamic Sitting Balance Ability Good Standing Balance and Reactions Static Standing Balance Ability Fair Dynamic Standing Balance Ability Fair Device Used FWW M5 PT-IP Objective Assessments Start: 08/10/19 15:51 Freq: NEEDED Status: Active Protocol: Document 08/10/19 14:13 AB (Rec: 08/10/19 16:05 AB [id number]) Orientation Orientation/Cognition Level of Alertness Alert Orientation Name,Place,Situation Language Function Ability No Deficits Noted Safety Awareness Decreased Safety Awareness Gross Range of Motion Lower Extremity ROM Assessment Within Functional Limits Strength Lower Extremity Strength Assessment Right Impaired Hip 3+/5 Knee 4-/5 Coordination Assessment Gross Coordination Gross Coordination WNL Sensation Assessment Sensation Gross Sensation WNL Muscle Tone Muscle Tone WNL Yes M6 PT-IP Treatment Start: 08/10/19 15:51 Freq: NEEDED Status: Active Protocol: Document 08/10/19 14:13 AB (Rec: 08/10/19 16:05 AB [email or web address]) Physical Therapy Treatment Education Education Provided Precautions,Weight Bearing Status,Post-Op Packet,Safety M7 PT-IP Assessment and Plan Start: 08/10/19 15:51 Freq: NEEDED Status: Active Protocol: Document 08/10/19 14:13 AB (Rec: 08/10/19 16:05 AB [email or web address]) PT Summary Assessment and Plan Potential Rehabilitation Potential Good Status of Condition at Evaluation Stable Summary Impairments Pain,ROM,Strength,Balance,Bed Mobility,Transfers,Gait, Activity Tolerance Assessment Summary pt requiring mod A with bed mobility and min A with transfers and ambulation using FWW. pt just had surgery this morning and will likely improve during hospital stay. pt. plans to go home and spouse to assist her. will conduct caregiver training when necessary and will also complete stair climbing training prior to d/c. Goals Bed Mobility Goal Independent Transfer Goal Independent,Front Wheeled Walker Gait Goal Independent,Front Wheel Walker Gait Distance 150 Other Goals up/down 3 steps R rail SBA Days to Meet Goals 5 Frequency of Treatment Frequency Of Treatment Twice a Day Treatment Plan Physical Therapy Treatment Plan Bed Mobility Training,Transfer Training,Gait Training, Therapeutic Exercise,Balance Retraining,Post Op Education, Discharge Planning,Hot or Cold Pack,Neuromuscular Re-ed, Coordination Retraining,Manual Therapy Other Recommendations and Next Treatment ambulation, caregiver training Focus (if needed), stair climbing Recommendations To Nursing Amount of Assist Needed 1 Person Assist Discharge Recommendations PT Discharge Recommendations Home with Assistance, Outpatient PT Transportation Needs at Discharge Private Vehicle
[2019-08-10] MEDS: ACETAMINOPHEN 325 MG TABLET 650 MG PO ×2 (14:54→20:50)
[2019-08-10] MEDS: LOSARTAN 50 MG TABLET 100 MG PO (20:47)
[2019-08-10] MEDS: ASPIRIN EC 81 MG TABLET PO (20:49)
[2019-08-10] MEDS: FAMOTIDINE 20 MG TABLET PO (20:49)
[2019-08-10] MEDS: DOCUSATE 100 MG CAPSULE PO (20:50)
[2019-08-10] MEDS: ATORVASTATIN 20 MG TABLET 40 MG PO (20:50)
--- NOTE | 2019-08-10 22:43 | PC.NURSE ---
Pt ambulated in hallways. CMS+. PP++. c/o of numbness to her Rt thigh area. pain controlled with tylenol and advil. saftey checks call light in reach.
[2019-08-10] MEDS: OXYCODONE IR 5 MG TABLET PO (23:53)
--- NOTE | 2019-08-11 00:07 | PC.NURSE ---
Addendum entered by Josseline Al R.N. 08/11/19 03:19: Medicated with Oxycodone for sharp 5/10 right leg pain with movement Original Note: Patient is alert and oriented. Breath sounds CTA with RA sat of 97%. HRR. Denies nausea. BT present but denies flatus. Voiding without dysuria, frequency or urgency but has some hesitancy which is chronic. Able to move self in bed. Out of bed with walker and SBA. Is weak in right LE and unable to lift it off bed but can slide it. Does have some residual numbness in left thigh but otherwise CMS is intact. After being up states pain in right hip is sharp with severity of 5/10 so medicated with Oxycodone. Wearing bilateral calf SCD's. Fall risk score is moderate; bed alarm is activated.
[2019-08-11] MEDS: IBUPROFEN 400 MG TABLET PO ×4 (00:26→13:23)
[2019-08-11 02:45] VITALS: BP 143/77; PULSE 69; RESP 16; TEMP 36.6; O2SAT 97
[2019-08-11] MEDS: OXYCODONE IR 5 MG TABLET PO (03:18)
[2019-08-11 07:02] LABS: Hematocrit 31.5 % (36-46); Hemoglobin 10.8 g/dL (12.0-16.0)
--- NOTE | 2019-08-11 07:44 | PM.PN.1 ---
Subjective Subjective Date Patient Seen: 08/11/19 Time Patient Seen: 07:44 Interval history: Beverley notes that she is doing well she has been up with physical therapy she has no nausea she did have a little numbness after her spinal and she notes that that is improving. Exam Vital Signs (past 8 hours): - 08/10/19 23:45 08/11/19 02:45 Temperature 98.6 F 97.8 F Pulse Rate 69 69 Respiratory Rate 16 16 Blood Pressure 131/71 143/77 H Pulse Oximetry 97 97 Oxygen Delivery Method Room Air Oxygen Flow Rate 0 Narrative Exam Narrative: Dressing is dry, minimal pain with range of motion able to fire her quad undue an active straight leg raise calfs are soft bilaterally no pain with range of motion Objective Labs Result Diagrams: 08/11/19 06:41 Labs: Laboratory Results - last 24 hr 08/11/19 06:41 Hgb 10.8 L Hct 31.5 L Assessment & Plan Assessment & Plan narrative: Doing well status post a right total hip arthroplasty. Plan is to discharge to home. Outpatient physical therapy and follow up with me in 10 days.
[2019-08-11] MEDS: ACETAMINOPHEN 325 MG TABLET 650 MG PO ×2 (08:16→13:24)
[2019-08-11] MEDS: DOCUSATE 100 MG CAPSULE PO (08:18)
[2019-08-11] MEDS: ASPIRIN EC 81 MG TABLET PO (08:18)
[2019-08-11] MEDS: CHOLECALCIFEROL (VITAMIN D3) 1,000 UNIT TABLET 1000 UNIT PO (08:19)
[2019-08-11] MEDS: FISH OIL 1,000 MG CAPSULE 1000 MG PO (08:20)
[2019-08-11] MEDS: SODIUM CHLORIDE 0.9% FLUSH 10 ML IV (08:20)
[2019-08-11 08:21] VITALS: BP 102/55; PULSE 62; RESP 15; TEMP 36.6; O2SAT 99
--- NOTE | 2019-08-11 09:00 | PT.IPTN ---
Current Diagnoses Unilateral primary osteoarthritis, right hip (08/10/19) Surgery Performed Operation Date: 08/10/19 07:45 Actual Procedures p Total Hip Arthroplasty/Anterior Approach(Right) - Maricel Mcleod MD Physical Therapy Treatment Note M2 PT-IP Current Condition Start: 08/10/19 15:51 Freq: NEEDED Status: Active Protocol: Document 08/10/19 14:13 AB (Rec: 08/10/19 16:05 AB [id number]) Physical Therapy Current Condition Current Condition Evaluation Date 08/10/19 Treatment Diagnosis s/p R ADRIANNA anterior approach; difficulty in walking Onset Date 08/10/19 Precautions Anterior Hip Precautions No Hip Extension,No Hip External Rotation Weight Bearing Status Weight Bearing Status Weight Bear as Tolerated Allowed Weight Bearing Amount (enter % RLE WBAT or #) (%) M3 PT-IP Subjective Start: 08/10/19 15:51 Freq: NEEDED Status: Active Protocol: Document 08/11/19 09:00 AB (Rec: 08/11/19 11:15 AB [id number]) Subjective Physical Therapy Visit Type Type Treatment Note Visit Start Time 09:00 Visit Stop Time 09:29 Total Visit Minutes 29 Number of TILLER MAN Visits 0 Physical Therapy Visit Comments Patient Comments pt agreeable to do PT Therapy Pain Assessment Pain When Pain Assessed At Rest Pain Present Pain Present Pain Reported Location Right Hip Intensity 3 Scale Used Numeric (0 - 10) Pain Management Techniques Modification of Treatment,Re- positioning,Timing of Activity with Medications M4 PT-IP Mobility and Gait Start: 08/10/19 15:51 Freq: NEEDED Status: Active Protocol: Document 08/11/19 09:00 AB (Rec: 08/11/19 11:15 AB [id number]) PT-Bed Mobility Assessment Supine to Sit Supine to Sit Standby Assistance Sit to Supine Sit to Supine Standby Assistance PT-Transfer Assessment Sit to and From Stand Sit to and from Stand Standby Assistance Equipment Transfer Assistive Device Gait Belt,Front Wheeled Walker Orthotic/Prosthetic Devices or Brace: No Transfers Transfer Destination Bed,Chair Transfer Technique ambulated using FWW Transfer Ability Level of Assist Standby Assistance Comments Mobility Comments completed sit to stand from chair SBA. ambulated to the bed using FWW SBA and completed bed mobility supine <> sit SBA. completed ambulation using FWW SBA towards the stairs. cues provided to maintain hip precautions. completed up/ down stairs x 2 sets. ambulated back to the room. pt requested to go back to bed and completed sit to supine SBA. positioned pt in bed. call light and table placed within reach. Gait Assessment Gait Gait Assistance Required: Standby Assistance Distance (Feet) 50 Able to Maintain Weight Bearing Status Yes During Gait Assistive Devices Assistive Device Gait Belt,Front Wheeled Walker Orthotic/Prosthetic Devices or Brace: No Gait Deviations General Gait Pattern Decreased Stride Length, Decreased Feet Clearance Factors Limiting Gait Function Factors Limiting Gait Function Decreased Activity Tolerance, Decreased Strength,Difficulty Following Directions,Limited Range of Motion,Pain,Poor Balance,Poor Safety Awareness Stair Climbing Assessment Evaluation Level of Assist On Stairs Standby Assistance Devices Stair Climbing Assistive Devices Right Railing Technique/Endurance Stair Climbing Direction Ascend and Descend Stair Climbing Technique Step to Step Number of Steps Climbed 3 Stair Climbing Set # Repetitions (reps) 2 M5 PT-IP Objective Assessments Start: 08/10/19 15:51 Freq: NEEDED Status: Active Protocol: Document 08/10/19 14:13 AB (Rec: 08/10/19 16:05 AB [email or web address]) Orientation Orientation/Cognition Level of Alertness Alert Orientation Name,Place,Situation Language Function Ability No Deficits Noted Safety Awareness Decreased Safety Awareness Gross Range of Motion Lower Extremity ROM Assessment Within Functional Limits Strength Lower Extremity Strength Assessment Right Impaired Hip 3+/5 Knee 4-/5 Coordination Assessment Gross Coordination Gross Coordination WNL Sensation Assessment Sensation Gross Sensation WNL Muscle Tone Muscle Tone WNL Yes M6 PT-IP Treatment Start: 08/10/19 15:51 Freq: NEEDED Status: Active Protocol: Document 08/11/19 09:00 AB (Rec: 08/11/19 11:15 AB [email or web address]) Physical Therapy Treatment Education Education Provided Precautions,Weight Bearing Status,Safety M7 PT-IP Assessment and Plan Start: 08/10/19 15:51 Freq: NEEDED Status: Active Protocol: Document 08/11/19 09:00 AB (Rec: 08/11/19 11:15 AB [id number]) PT Summary Assessment and Plan Potential Rehabilitation Potential Good Summary Impairments Pain,ROM,Strength,Balance, Coordination,Sensation,Tone, Cognition,Bed Mobility, Transfers,Gait,Activity Tolerance Progress Towards Goals Progressing Toward Goals Assessment Summary pt is progressing well with mobility and plans to go home later today. pt will have her spouse to assist her. pt stated that she is set up for outpt PT. pt may go home when medically stable. Goals Bed Mobility Goal Independent Transfer Goal Independent,Front Wheeled Walker Gait Goal Independent,Front Wheel Walker Gait Distance 150 Other Goals up/down 3 steps R rail SBA Days to Meet Goals 5 Frequency of Treatment Frequency Of Treatment Twice a Day Treatment Plan Physical Therapy Treatment Plan Bed Mobility Training,Transfer Training,Gait Training, Therapeutic Exercise,Balance Retraining,Post Op Education, Discharge Planning,Hot or Cold Pack,Neuromuscular Re-ed, Coordination Retraining,Manual Therapy Other Recommendations and Next Treatment ambulation, caregiver training Focus (if needed), stair climbing Recommendations To Nursing Amount of Assist Needed 1 Person Assist Discharge Recommendations PT Discharge Recommendations Home with Assistance, Outpatient PT Transportation Needs at Discharge Private Vehicle
--- NOTE | 2019-08-11 13:55 | CM.DANOTE ---
Addendum entered by Latasha Mcleod 08/11/19 14:03: Amend: Information below on incorrect patient. KJS Original Note: DCP/Assessment: Reviewed chart. Patient is a 68yr old female admitted [facility] for jaw pain, nausea and sweating. PCP not listed. Primary payor is 1)[employer]. Attempted to meet patient this AM and patient had already discharged. Spoke with RN/David, she reports patient I with ADL's and had no identified d/c planning needs. P: Home today with supportive family. CATRACHITO Comer Discharge Planning/Care Management Pre-Anesthesia Assessment Start: 08/04/19 11:54 Freq: Status: Complete Protocol: Document 08/04/19 11:54 CAB (Rec: 08/04/19 12:17 CAB [id number]) Pre-Anesthesia Assessment Preferred Name Kirsten Patient Information Reviewed Via Phone Assessment Assessment Completed With Patient Diagnostic Results BMP/CMP,CBC,EKG Comment Labs/EKG @ 08/02/19 COVID scheduled @ 08/07/19 Primary Care Provider Amanda Hunter Seen Specialist in Last 12 Months Yes Specialist Seen Manager Care,Orthopedist Primary Language Azerbaijani Preferred Language Azerbaijani Automotive Technician Instructor Required No Height 170.18 cm Weight 65.771 kg Body Mass Index (BMI) 22.7 Hearing Ability Normal Visual Assist Glasses Dentition Type Teeth, Natural Present,Teeth, Missing Barriers to Learning None Other Aids No Hx Anesthesia Reactions Yes: Vomiting s/p 12 hours after RT TKA 2019 Hx Family Anesthesia Reaction No Hx Malignant Hyperthermia No Hx Blood Transfusions No Anesthesia Review Requested No Chemistry Intern No alcohol intake current alcohol intake frequency a few times a week Smoking Status Never smoker Substance Use Type does not use Pain Present Pain Reported Musculoskeletal Symptoms Abnormal Gait,Back Pain, Difficulty Walking,Joint Pain, Numbness History of Falling (Recent or History of No ) Patient is completely paralyzed or No completely immobile Mental Status Oriented to own ability Comment Walking sticks Is patient on oxygen? No Does patient have CALL/SOB No Hx Sleep Apnea No CPAP/BIPAP use not prescribed Currently Taking a Beta [place] No Can You Climb a Flight of Stairs Without Yes SOB Hx Chest Pain No Hx SOB No Hx Syncope or Dizziness Yes: Occasional lightheadedness w/quick positional changes, dehydration Anti-Coagulant Therapy No Has a Enamel Dipper No Cardiac Testing No Hx Pacemaker/ICD No Pacemaker Rep Required? No Cardiac Clearance Received Not Applicable Diet Type At Home Regular,Low Sodium dysphagia No Gastrointestinal Symptoms Constipation,Reflux Bladder Pattern Urgency Urinary Catheter Present No Hx Urinary Self Catheterization No Comment Pessary in place Diabetes No HgbA1C 5.0 Date 08/02/19 Patient No Lactating No Hx Drug Resistant Organism No Presence of External or Internal Medical Yes: Pessary Devices Have you had any close contact with No someone diagnosed with COVID-19? Marital Status Lives With spouse Prior Living Arrangements House Support System Spouse Does the Patient Have Assistance After Yes Surgery Patient Discharge Plan Description Return Home Feels Safe in Current Environment Yes Been Physically Hurt or Threatened By a No Person in Current Environment Do you have thoughts of harming yourself None or others? Are you currently considering suicide? No Do you have a plan to hurt yourself or No Plan others? Do You Have Any Spiritual Beliefs That No May Affect Your HC Choices? Do You Have Any Cultural Practices That No May Affect Your HC Choices? Comment Zoroastrianism Who Can We Speak to About Patient's Care Family, friends Identifying Code for Release of Patient Declines to issue Information Health Care Proxy/Next of Kin Pedro () Health Care Proxy Emergency Contact Name Pedro () Emergency Contact Advance Directives? Yes Advance Directives on File Yes Power of Sound Equipment Mechanic Yes Power of Sound Equipment Mechanic Name Pedro () Power of Sound Equipment Mechanic PAC Instructions Do not shave/clip surgical site,Durable medical equipment ,Medications to take/avoid, Nasal antibiotic,No ETOH/ petroleum product on skin DOS, Post-op transportation,Pre- surgical wash,Sensory aids, Sturdy shoes/comfortable clothes,Do not bring valuables and remove jewelry
--- NOTE | 2019-08-11 14:06 | PC.NURSE ---
Discharge instructions and home care reviewed with patient, she states understanding and has no further questions or concerns at this time. IV dc'd intact. Aquacel dressing remains CDI. Patient states she has follow up appointment and outpatient PT scheduled. Escorted out via wheelchair to home with her . Patient instructed to call surgeon with questions or concerns. instructed to seek emergency care for an emergency.
--- NOTE | 2019-08-11 14:10 | CM.DANOTE ---
DCP/Assessment: Reviewed chart. Patient is a 73yr old female admitted to [facility] for elective right ADRIANNA performed on 08-10-[address] Mcleod. PCP is Dr. Hunter. Primary payor is 1)Medicare 2)[facility]. Met with patient this AM explained CM/SW role. Patient resting comfortably at time of visit. Patient reports that she will be discharging home today. Patient does not anticipate any issues at home. Patient resides with supportive spouse. Patient reports having all needed DME. Patient has outpatient therapy arranged through [facility]. No additional needs identified at this time. Therapy following. P: Home today. CATRACHITO Comer Discharge Planning/Care Management CM Discharge Assessment Start: 08/11/19 13:55 Freq: Status: Active Protocol: Document 08/11/19 14:08 KJS (Rec: 08/11/19 14:10 KJS [id number]) Discharge Planning Assessment Assigned Dip Filler CATRACHITO Comer Contact Information Toni Reese (spouse)# [phone] Advance Directives? Yes Advance Directives on File Yes History Provided By Medical Record Prior Living Arrangements House Household Members spouse Independent with ADL's Yes Is patient alert and oriented? Yes Caregiver for Another No DME Already Rented / Owned FWW / Walker Patient/Family Preference OP PT Therapy Comment [facility] Barriers to Discharge No Discharge Plan Home Transportation Arrangement Family to provide tranport today after lunch. Referrals Initiated None needed Whiteboard Updated in Patient Room with Yes name and ext. # of Dip Filler Review Status In Process Next Review Type Continued Stay Review Pre-Anesthesia Assessment Start: 08/04/19 11:54 Freq: Status: Complete Protocol: Document 08/04/19 11:54 CAB (Rec: 08/04/19 12:17 CAB [id number]) Pre-Anesthesia Assessment Preferred Name Kirsten Patient Information Reviewed Via Phone Assessment Assessment Completed With Patient Diagnostic Results BMP/CMP,CBC,EKG Comment Labs/EKG @ 08/02/19 COVID scheduled @ 08/07/19 Primary Care Provider Amanda Hunter Seen Specialist in Last 12 Months Yes Specialist Seen Artificial Leather Calender Operator,Orthopedist Primary Language Swedish Preferred Language Swedish Print Inspector Required No Height 170.18 cm Weight 65.771 kg Body Mass Index (BMI) 22.7 Hearing Ability Normal Visual Assist Glasses Dentition Type Teeth, Natural Present,Teeth, Missing Barriers to Learning None Other Aids No Hx Anesthesia Reactions Yes: Vomiting s/p 12 hours after RT TKA 2019 Hx Family Anesthesia Reaction No Hx Malignant Hyperthermia No Hx Blood Transfusions No Anesthesia Review Requested No Ui Developer Designer No alcohol intake current alcohol intake frequency a few times a week Smoking Status Never smoker Substance Use Type does not use Pain Present Pain Reported Musculoskeletal Symptoms Abnormal Gait,Back Pain, Difficulty Walking,Joint Pain, Numbness History of Falling (Recent or History of No ) Patient is completely paralyzed or No completely immobile Mental Status Oriented to own ability Comment Walking sticks Is patient on oxygen? No Does patient have CALL/SOB No Hx Sleep Apnea No CPAP/BIPAP use not prescribed Currently Taking a Beta Tacos No Can You Climb a Flight of Stairs Without Yes SOB Hx Chest Pain No Hx SOB No Hx Syncope or Dizziness Yes: Occasional lightheadedness w/quick positional changes, dehydration Anti-Coagulant Therapy No Has a Obstetrician And Gynaecologist No Cardiac Testing No Hx Pacemaker/ICD No Pacemaker Rep Required? No Cardiac Clearance Received Not Applicable Diet Type At Home Regular,Low Sodium dysphagia No Gastrointestinal Symptoms Constipation,Reflux Bladder Pattern Urgency Urinary Catheter Present No Hx Urinary Self Catheterization No Comment Pessary in place Diabetes No HgbA1C 5.0 Date 08/02/19 Patient No Lactating No Hx Drug Resistant Organism No Presence of External or Internal Medical Yes: Pessary Devices Have you had any close contact with No someone diagnosed with COVID-19? Marital Status Lives With spouse Prior Living Arrangements House Support System Spouse Does the Patient Have Assistance After Yes Surgery Patient Discharge Plan Description Return Home Feels Safe in Current Environment Yes Been Physically Hurt or Threatened By a No Person in Current Environment Do you have thoughts of harming yourself None or others? Are you currently considering suicide? No Do you have a plan to hurt yourself or No Plan others? Do You Have Any Spiritual Beliefs That No May Affect Your HC Choices? Do You Have Any Cultural Practices That No May Affect Your HC Choices? Comment Confucianism Who Can We Speak to About Patient's Care Family, friends Identifying Code for Release of Patient Declines to issue Information Health Care Proxy/Next of Kin Pedro () Health Care Proxy Emergency Contact Name Pedro () Emergency Contact Advance Directives? Yes Advance Directives on File Yes Power of Gem Stone Cutter Yes Power of Gem Stone Cutter Name Pedro () Power of Gem Stone Cutter PAC Instructions Do not shave/clip surgical site,Durable medical equipment ,Medications to take/avoid, Nasal antibiotic,No ETOH/ petroleum product on skin DOS, Post-op transportation,Pre- surgical wash,Sensory aids, Sturdy shoes/comfortable clothes,Do not bring valuables and remove jewelry
== END 2019-08-11 14:11 | disposition home or self-care (01) ==
LOC: OR 06:41 → AC 08:28
PROVIDERS: PCP Internal Medicine; Referring Provider Internal Medicine; Visit Provider Orthopaedic Surgery
PROC: (CPT 27130; principal; 2019-08-10 07:45)
DX: M16.11 Unilateral primary osteoarthritis, right hip (principal); I10 Essential (primary) hypertension; K21.9 Gastro-esophageal reflux disease without esophagitis
CPT/HCPCS: 27130; 36415; 73502; 73503; 76000; 85014; 85018; 97116; 97161; 97530; C1776; A9270; C9290; J0171; J0690; J1100; J2250; J2405; J2704; J3010

== ENCOUNTER → 2020-01-10 07:10 | Outpatient (CLI) | payer MEDICARE, SELFPAY ==
[2019-08-10 11:44] VITALS: BMI 22.7
[2020-01-10 08:34] LABS: Alanine Aminotransferase 30 IU/L (<35); Albumin 3.9 g/dL (3.5-5.0); Albumin Globulin Ratio 1.2 (1.0-2.8); Alkaline Phosphatase 74 U/L (38-126); Aspartate Aminotransferase 42 IU/L (14-36); BUN Creatinine Ratio 25.4 (6-22); Bilirubin Total 0.5 mg/dL (0.2-1.3); Blood Urea Nitrogen 18 mg/dL (7-17); Calcium 9.6 mg/dL (8.4-10.2); Carbon Dioxide 33 mmol/L (22-32); Chloride 102 mmol/L (98-107); Cholesterol 175 mg/dL (140-199); Estimated Glomerular Filt Rate > 60.0 mL/min (>60); Globulin 3.2 g/dL (1.7-4.1); Glucose 85 mg/dL (80-110); HDL Cholesterol 70 mg/dL (40-60); HEMOLYSIS < 15 (0-50); LDL Cholesterol Calculated 94 mg/dL (<100); Potassium 4.6 mmol/L (3.4-5.1); Sodium 137 mmol/L (137-145); Total Protein 7.1 g/dL (6.3-8.2); Triglycerides 57 mg/dL (35-150)
== END ==
PROVIDERS: PCP Internal Medicine; Referring Provider Internal Medicine; Visit Provider Internal Medicine
DX: E78.5 Hyperlipidemia, unspecified (principal); I10 Essential (primary) hypertension
CPT/HCPCS: 36415; 80053; 80061

== ENCOUNTER → 2020-12-02 08:04 | Outpatient (CLI) | payer MEDICARE, SELFPAY ==
[2019-08-10 11:44] VITALS: BMI 22.7
--- NOTE | 2020-12-02 08:14 | DI.MG.S_ITS ---
BILATERAL DIGITAL SCREENING MAMMOGRAM 3D/2D WITH CAD: 12/02/2020 CLINICAL: Routine screening. Comparison is made to exams dated: 07/15/2016 mammogram, 07/14/2015 mammogram - [facility], and 09/16/2013 mammogram - [facility]. The tissue of both breasts is heterogeneously dense. This may lower the sensitivity of mammography. Current study was also evaluated with a Computer Aided Detection (CAD) system. There are benign calcifications in both breasts. No significant masses, calcifications, or other findings are seen in either breast. There has been no significant interval change. IMPRESSION: BENIGN There is no mammographic evidence of malignancy. A 1 year screening mammogram is recommended. This exam was interpreted at Station ID: [id number]. NOTE: For mammograms, a report in lay terms will be sent to the patient. Approximately 15% of breast malignancies will not be visualized mammographically. In the management of a palpable breast mass, a negative mammogram must not discourage biopsy of a clinically suspicious lesion. Electronically Signed By: Sugey funes/isaac:12/04/2020 09:26:35 letter sent: Normal Exam ACR BI-RADS Category 2: Benign Finding(s) [id number]
== END ==
PROVIDERS: PCP Internal Medicine; Referring Provider Family Medicine; Visit Provider Family Medicine
DX: Z12.31 Encounter for screening mammogram for malignant neoplasm of breast (principal)
CPT/HCPCS: 77063; 77067

== ENCOUNTER 2020-12-06 08:15 | Emergency (ER) | payer MEDICARE, SELFPAY ==
[2019-08-10 11:44] VITALS: BMI 22.7
[2020-12-06] VITALS (9 sets, daily range): BP systolic 111–135; BP diastolic 56–65; PULSE 60–67; RESP 12–26; TEMP 36.4; O2SAT 97–100; BMI 23.1
--- NOTE | 2020-12-06 08:19 | ED_ITS ---
HPI - Extremity Problem General Chief complaint: Syncope Stated complaint: Severe Neck/shoulder pain- nauseated Time Seen by Provider: 12/06/20 08:19 Source: patient and old records reviewed Mode of arrival: Wheelchair Limitations: no limitations History of Present Illness HPI Narrative: This is a 75-year-old female who comes emergency department with complaint left neck pain radiating into her left shoulder and upper arm. Patient states that it began about 2 days ago. Three days ago she was raking leaves but she states this is an atypical activity for her. She has had discomfort intermittently for the last several days but it always resolves at night when she lays down. She states that getting up from all laying to standing position seems to exacerbated and mated initiate this morning. She states movement does seem to bother it particularly reaching with that arm. She denies any numbness, tingling or weakness in her arm. She denies any radiation her chest. She states today when she got up the pain was quite intense that she felt a little lightheaded. She states she did not have any syncope. She never lost consciousness. She denies headache. She denies vision changes. She states she has felt a little nauseated when she is in pain. And has a little bit of epigastric discomfort. Patient states she felt mildly short of breath as well. She has not any fevers, no cold cough or congestion. She takes medication for hypertension and dyslipidemia an aspirin daily. Patient states she has had prior orthopedic surgeries for her hip. She denies any prior neck or back surgeries. No tobacco, occasional alcohol. No illicit. Her PCP is Amanda Hunter. Patient does note she took an oxycodone last night that was left over from prior surgery which helped her sleep. She also notes that while lying in the bed flat without any movement her pain resolved. Related Data Home Medications Medication Instructions Recorded Confirmed atorvastatin 40 mg tablet 40 mg PO BEDTIME 05/26/18 12/06/20 cholecalciferol (vitamin D3) 25 1,000 unit PO DAILY 06/09/18 08/04/19 mcg (1,000 unit) capsule (Vitamin D3) coenzyme Q10 200 mg capsule (Co 1,000 mg PO DAILY 06/09/18 08/04/19 Q-10) omega 6-szz-alf-fish oil 1,000 mg 1 cap PO DAILY 04/30/19 06/24/20 (120 mg-180 mg) capsule (Fish Oil) acetaminophen 500 mg tablet 1,000 mg PO Q6H PRN 08/04/19 12/06/20 (Acetaminophen Extra Strength) famotidine 20 mg tablet 20 mg PO BEDTIME 08/04/19 08/04/19 losartan 100 mg tablet 100 mg PO BEDTIME 08/04/19 12/06/20 Previous Rx's Medication Instructions Recorded aspirin 81 mg tablet,delayed 81 mg PO BID #60 tab 08/10/19 release ibuprofen 400 mg tablet 400 mg PO Q4HR #90 tab 08/10/19 oxycodone 5 mg tablet 5 mg PO Q3HR PRN #30 tab 08/10/19 polyethylene glycol 3350 17 gram 17 gm PO DAILY PRN #30 ea 08/10/19 oral powder packet diazepam 5 mg tablet (Valium) 5 mg PO BID PRN #10 tab 12/06/20 Allergies Allergy/AdvReac Type Severity Reaction Status Date / Time No Known Drug Allergies Allergy Verified 12/06/20 08:24 Review of Systems Review of Systems ROS Unobtainable: All systems reviewed & are unremarkable except as noted in HPI and below Patient History Medical History BCC (basal cell carcinoma), face GERD (gastroesophageal reflux disease) Hemorrhoids HLD (hyperlipidemia) HTN (hypertension) Lower back pain Neuropathy Osteoarthritis Prolapsed bladder Uterovaginal prolapse Vertigo (~2013) Surgical History History of arthroplasty of right knee (06/09/18) History of carpal tunnel repair Hx of arthroscopy of right knee (~2003) Hx of cholecystectomy Hx of dilation and curettage Hx of eye surgery Hx of eye surgery (~08/2017) Hx of repair of patent ductus arteriosus (~1949) Status post arthroscopy Status post bilateral cataract extraction Status post cholecystectomy Family History Brother Age: 72 Skin cancer (melanoma) Sister Age: 78 Skin cancer (melanoma) Sister Age: 70 Skin cancer (melanoma) Social History household members: spouse Smoking Status: Never smoker alcohol intake: current Smoking Status: Never smoker alcohol intake frequency: a few times a week Substance Use Type: does not use Exam Narrative Exam Narrative: GENERAL: Alert and oriented x three, female in mild distress. HEENT: Head normocephalic, atraumatic, EOMI, pupils reactive, face symmetric, moist mucous membranes NECK: Supple, full range of motion, patient does not have any cervical or thoracic vertebral point tenderness. She has normal range of motion. She does have some tissue tightness on the left paraspinal, and she has some tenderness over the right scapula and just medial and the soft tissue. No warmth, erythema or skin changes are noted. CARDIOVASCULAR: Regular rate and rhythm without murmurs, rubs or gallops. RESPIRATORY: Breath sounds equal bilaterally, no wheezes rales or rhonchi. ABDOMEN: Soft, nontender. Normoactive bowel sounds all 4 quadrants. No guarding or rebound, rigidity, no mass : No CVA tenderness EXTREMITIES: Normal range of motion, no clubbing or edema. Neurovascularly intact. Patient has full range of motion of upper and lower extremities. 5/5 strength in upper extremities. 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 2+ radial pulses bilaterally. No warmth, erythema swelling of upper extremities. NEUROLOGICAL: Cranial nerves II through XII grossly intact. Moving all extremities SKIN: Warm, dry, no petechiae, no rashes or lesions. Initial Vital Signs Initial Vital Signs: Vital Signs Temperature 97.5 F L 12/06/20 08:26 Pulse Rate 67 12/06/20 08:26 Respiratory Rate 18 12/06/20 08:26 Blood Pressure 111/56 L 12/06/20 08:26 Pulse Oximetry 97 12/06/20 08:26 Course Orders Ordered: ED Orders 12/06/20 08:27 XR chest 1V Stat EKG-12 Lead Stat 12/06/20 08:35 Complete Blood Count AUTO DIFF Stat Comprehensive Metabolic Panel Stat D Dimer Stat Lipase Stat NT-proBNP (BNP-Adult 18+) Stat Troponin & CK Cardiac Panel Stat 12/06/20 09:57 CT abdomen pelvis w con Stat 12/06/20 10:20 Urine Microscopic Stat Discontinued Medications Aspirin (Aspirin 81 Mg Chew Tab) 324 mg PO NOW ONE Stop: 12/06/20 08:28 Last Admin: 12/06/20 08:35 Dose: 324 mg Documented by: ANI Sodium Chloride (Normal Saline 0.9%) 1,000 mls @ 150 mls/hr IV CONT JANAY Last Infusion: 12/06/20 10:45 Dose: 0 mls/hr Documented by: Admin: 12/06/20 08:36 Dose: 150 mls/hr Documented by: ANI Ondansetron HCl (Ondansetron 4 Mg/2 Ml Inj) 4 mg IV NOW ONE Stop: 12/06/20 08:28 Last Admin: 12/06/20 08:36 Dose: 4 mg Documented by: ANI Oxycodone/Acetaminophen (Oxycodone/Acetaminophen 5/325 Tablet) 1 tab PO NOW ONE Stop: 12/06/20 08:36 Last Admin: 12/06/20 08:37 Dose: 1 tab Documented by: ANI Reevaluation(s) Reevaluation #1: Discussed with patient her liver enzymes are slightly elevated. After some shared decision making decision was made to CT her abdomen and pelvis she has had some nausea and epigastric discomfort today as well. Patient has had a cholecystectomy so ultrasound was thought to be not as helpful. Reevaluation #2: Recheck patient states she is comfortable at this time but believes when she starts moving around her pain will continue to be present. Reviewed her labs, imaging and findings today she feels comfortable returning home with plan for heat, medication for pain control and some muscle relaxation and follow-up with primary care. Return precautions discussed. Time: 10:34 Vital Signs Vital signs: Vital Signs - 8 hr 12/06/20 08:26 12/06/20 08:32 12/06/20 08:43 Temperature 97.5 F L Pulse Rate 67 63 66 Respiratory Rate 18 12 20 Blood Pressure 111/56 L 115/58 L Pulse Oximetry 97 99 98 12/06/20 08:48 12/06/20 09:00 12/06/20 09:30 Temperature Pulse Rate 63 60 61 Respiratory Rate 15 14 12 Blood Pressure 115/58 L 115/60 127/62 Pulse Oximetry 99 97 98 12/06/20 10:10 12/06/20 10:11 12/06/20 10:30 Temperature Pulse Rate 64 63 63 Respiratory Rate 20 16 26 H Blood Pressure 135/65 129/64 Pulse Oximetry 100 99 98 MDM - Extremity (Nontraumatic) Lab Data Result diagrams: 12/06/20 08:35 12/06/20 08:35 Labs: Lab Results 12/06/20 12/06/20 12/06/20 Range/Units 08:35 08:35 08:35 WBC 6.5 (4.5-11.0) X10^3/uL RBC 4.13 (4.0-5.2) X10^6/uL Hgb 12.5 (12.0-16.0) g/dL Hct 36.9 (36-46) % MCV 89.3 (80-100) fL MCH 30.2 (26-34) PG MCHC 33.8 (30-36) % RDW 14.0 (11.6-14.8) % Plt Count 260 (150-400) X10^3/uL Neut % (Auto) 63.1 (50-75) % Lymph % (Auto) 25.8 (25-40) % Jessamine % (Auto) 9.4 (3-14) % Eos % (Auto) 1.0 L (2-4) % Baso % (Auto) 0.7 (0-2) % Neut # (Auto) 4100 (1056-0993) /uL Lymph # (Auto) 1700 (7115-2272) /uL Jessamine # (Auto) 600 (0-900) /uL Eos # (Auto) 100 (0-450) /uL Baso # (Auto) 0 (0-100) /uL D-Dimer 292 H (<230) ng/mL Sodium 140 (137-145) mmol/L Potassium 3.9 (3.4-5.1) mmol/L Chloride 101 (98-107) mmol/L Carbon Dioxide 32 (22-32) mmol/L BUN 17 (7-17) mg/dL Creatinine 0.81 (0.52-1.04) mg/dL Estimated GFR > 60.0 (>60) mL/min BUN/Creatinine Ratio 21.0 (6-22) Glucose 79 L (80-110) mg/dL Calcium 9.4 (8.4-10.2) mg/dL Total Bilirubin 0.7 (0.2-1.3) mg/dL AST 373 H (14-36) IU/L ALT 181 H (<35) IU/L Alkaline Phosphatase 101 (38-126) U/L Total Creatine Kinase 64 (30-135) U/L CK-MB (CK-2) TNP CK-MB (CK-2) Rel Index TNP Troponin I < 0.012 (0.01-0.034) ng/mL NT-Pro-B Natriuret Pep 206 H (<125) pg/mL Total Protein 7.1 (6.3-8.2) g/dL Albumin 4.1 (3.5-5.0) g/dL Globulin 3.0 (1.7-4.1) g/dL Albumin/Globulin Ratio 1.4 (1.0-2.8) Lipase 314 H (23-300) U/L Urine RBC (0-5/HPF) Urine WBC (0-5/HPF) Ur Squamous Epith Cells (0-5/HPF) Urine Bacteria (None) Ur Culture Indicated? 12/06/20 Range/Units 10:20 WBC (4.5-11.0) X10^3/uL RBC (4.0-5.2) X10^6/uL Hgb (12.0-16.0) g/dL Hct (36-46) % MCV (80-100) fL MCH (26-34) PG MCHC (30-36) % RDW (11.6-14.8) % Plt Count (150-400) X10^3/uL Neut % (Auto) (50-75) % Lymph % (Auto) (25-40) % Jessamine % (Auto) (3-14) % Eos % (Auto) (2-4) % Baso % (Auto) (0-2) % Neut # (Auto) (6613-9610) /uL Lymph # (Auto) (0541-2341) /uL Jessamine # (Auto) (0-900) /uL Eos # (Auto) (0-450) /uL Baso # (Auto) (0-100) /uL D-Dimer (<230) ng/mL Sodium (137-145) mmol/L Potassium (3.4-5.1) mmol/L Chloride (98-107) mmol/L Carbon Dioxide (22-32) mmol/L BUN (7-17) mg/dL Creatinine (0.52-1.04) mg/dL Estimated GFR (>60) mL/min BUN/Creatinine Ratio (6-22) Glucose (80-110) mg/dL Calcium (8.4-10.2) mg/dL Total Bilirubin (0.2-1.3) mg/dL AST (14-36) IU/L ALT (<35) IU/L Alkaline Phosphatase (38-126) U/L Total Creatine Kinase (30-135) U/L CK-MB (CK-2) CK-MB (CK-2) Rel Index Troponin I (0.01-0.034) ng/mL NT-Pro-B Natriuret Pep (<125) pg/mL Total Protein (6.3-8.2) g/dL Albumin (3.5-5.0) g/dL Globulin (1.7-4.1) g/dL Albumin/Globulin Ratio (1.0-2.8) Lipase (23-300) U/L Urine RBC 1-5/hpf (0-5/HPF) Urine WBC 1-5/hpf (0-5/HPF) Ur Squamous Epith Cells 1-5 /hpf (0-5/HPF) Urine Bacteria Moderate (10-30) H (None) Ur Culture Indicated? Cult not indicated Urine Dip Bedside Urine Glucose Negative Bedside Urine Bilirubin - Negative Bedside Urine Ketone - Negative Urine Specific Shirland 1.005 Bedside Urine Occult Blood - Negative Bedside Urine pH 8 Bedside Urine Protein ++ 100 Bedside Urine Urobilinogen +/- 1mg Bedside Urine Nitrite - Negative Bedside Urine Leukocytes - Negative Esterase Imaging Data Chest x-ray: Radiologist's Impression: [address] [address] XRay Report Signed Patient: Beverley Reese MR#: [id number] : 1945 Acct:[id number] Age/Sex: 75 / F Date of Service: 12/06/20 Loc: ED Accession Number: [id number] ?? Procedure: XR chest 1V Ordering Provider: Monica Farias D.O. PROCEDURE:? XR CHEST 1V ? INDICATIONS:? neck pain, sob, lightheaded ? TECHNIQUE:? One view of the chest was acquired.? ? COMPARISON:? None. ? FINDINGS:? ? Surgical changes and devices:? None.? ? Lungs and pleura:? Lungs are clear.? No pleural effusions or pneumothorax.? ? Mediastinum:? Mediastinal contours appear normal.? Heart size is normal.? ? Bones and chest wall:? No suspicious bony lesions.? Overlying soft tissues appear unremarkable.? ? IMPRESSION:? No acute cardiopulmonary pathology. ? ? Dictated by: Atilio Wilde M.D. on 12/06/2020 at 8:59 ? ? Approved by: Atilio Wilde M.D. on 12/06/2020 at 8:59? CT scan - abdomen/pelvis: Radiologist's Impression: [place] [address] CT Scan Report Signed Patient: Beverley Reese MR#: [id number] : 1945 Acct:[id number] Age/Sex: 75 / F Date of Service: 12/06/20 Loc: ED Accession Number: [id number] ?? Procedure: CT abdomen pelvis w con Ordering Provider: Monica Farias D.O. PROCEDURE:? CT ABDOMEN PELVIS W CON ? INDICATIONS:? abd pain, + nausea, hx cholecyst, elevated lft ? TECHNIQUE:? After the administration of oral and IV contrast, axial sections were acquired from the lung bases to the pubic symphysis.? Coronal and sagittal reformats were performed.? For radiation dose reduction, the following was used:? automated exposure control, adjustment of mA and/or kV according to patient size. ? COMPARISON:? None. ? FINDINGS:? Image quality:? There is artifact associated with the metallic hardware. ? Artifact from the metallic hardware is reduced by metal reconstruction algorithm.? ? Lung bases:? Unremarkable.? ? Heart:? No significant findings. ? ? ABDOMEN: Liver:? Unremarkable.? ? Gallbladder:? Removed.? ? Biliary ducts:? Unremarkable.? ? Pancreas:? Unremarkable.? ? Spleen:? Unremarkable.? ? Adrenal Glands:? Unremarkable.? ? Kidneys and Ureters:? At the superior pole of the left kidney, there is a simple appearing cyst seen that measures water density and 2.8 cm.? Smaller simple appearing cysts are also seen within the left kidney.? The kidneys demonstrate normal size and enhance symmetrically.? There is no hydronephrosis. ? Stomach and Bowel:? There is a moderate amount of stool seen within the colon.? The colon is tortuous.? No dilated loops of small bowel are seen.? There is a fluid filled stomach seen. Peritoneum:? No abnormal intraperitoneal fluid.? No free air.? ? Ventral Wall: ? No hernia.? Abdominal Nodes:? No retroperitoneal or mesenteric adenopathy by size criteria.? Vessels:? Aorta and inferior vena cava are normal in size.? ? PELVIS: Pelvic Organs:? A vaginal pessary can be seen. The uterus appears normal for age.? No adnexal masses are seen.? Bladder:? Unremarkable.? ? Pelvic Nodes: No enlarged lymph nodes.? Miscellaneous:? There is a fat containing left groin hernia. ? ? ? Bones:? Moderate levoconvex scoliosis this is seen.? Right hip arthroplasty hardware can be seen.? Generalized relatively prominent degenerative changes are seen. ? ? IMPRESSION:? ? There is a moderate amount of stool seen within the colon. Please correlate with an underlying history of constipation.? ? A fluid filled stomach can be seen. ? No dilated loops of small bowel are seen. ? Normal appearing liver. ? ? Incidental note is made of: Cholecystectomy Simple appearing left renal cysts Vaginal pessary Fat containing left groin hernia Moderate levoconvex scoliosis Right hip arthroplasty hardware ? Dictated by: James Hemphill M.D. on 12/06/2020 at 9:03 ? ? Approved by: James Hemphill M.D. on 12/06/2020 at 9:08?? ECG Data Attestation EKG: I personally reviewed and interpreted this ECG as follows: Prior ECG tracings: available for review Interpretation: Sinus rhythm rate of 63, IN interval 150 QRS of 102 QTC of 429. Left axis deviation. Patient has Q-waves in 2 3 AVF. No acute changes appreciated patient has prior EKG from 08/02/2019 which does not show acute changes. MDM Narrative Medical decision making narrative: This is a 75-year-old female who presents with complaint of left neck and shoulder pain seems to be musculoskeletal but she also complains of feeling lightheaded and having some nausea and feeling warm and hot earlier today. Patient does seem to have increased symptoms with movement but based on her age and risk factors and clinical picture cardiac enzymes, EKG and dimer were included. Patient's cardiac enzyme is negative, EKG does not show acute changes. D-dimer when adjusted for age is negative. Patient has a very slight elevation in her lipase. Noted her glucose is slightly low as well as her AST/ALT. Patient feels much better without any continued pain while lying on the bed. We reviewed her findings today my suspicion for ACS or cardiac cause of her symptoms is decreased after her reassuring findings. She is noted to have her changes today her HDL here slightly more higher than prior and she did note she had some discomfort in the epigastric region discussed evaluation she has had a cholecystectomy so CT abdomen pelvis was performed over ultrasound. CT shows incidental findings but no significant pathology. This was all reviewed with the patient who feels comfortable returning plan for follow-up with primary care, Tylenol and ibuprofen as needed for pain as well as muscle relaxer and heat as needed. Discharge Plan Departure Patient Disposition: Home Clinical Impression: Cervical pain, Renal cyst, left, Left groin hernia Instructions: DI for Neck Pain Activity Restrictions/Additional Instructions: Follow up your physician for recheck. I would recommend Tylenol up to a 1000 mg every 8 hours as needed. You may add ibuprofen up to 600 mg every 6 hours. If this is an adequate you can add a muscle relaxer which may be helpful. Heat to the affected area may be helpful and alternating with ice as needed. Prescription sent to [facility] in [place]. Your imaging incidentally notes a cyst on your left kidney as well as a small hernia on the left groin. Your labs today did show an elevation in your liver enzymes which are slightly higher than the past. Would recommend that you follow-up with her physician to continue to monitor these. Please return for new or worsening symptoms, numbness, tingling or weakness, new chest pain, shortness of breath, lightheadedness or passing out, persistent vomiting or other new or concerning symptoms. Prescriptions: New diazepam [Valium] 5 mg tablet 5 mg PO BID PRN (Reason: muscle spasm) Qty: 10 RF: 0 No Action atorvastatin 40 mg Tablet 40 mg PO BEDTIME RF: 0 cholecalciferol (vitamin D3) [Vitamin D3] 1,000 unit Capsule 1,000 unit PO DAILY RF: 0 coenzyme Q10 [Co Q-10] 200 mg Capsule 1,000 mg PO DAILY RF: 0 omega 7-[id number]-fish oil [Fish Oil] 1,000 mg (120 mg-180 mg) Capsule 1 cap PO DAILY RF: 0 acetaminophen [Acetaminophen Extra Strength] 500 mg Tablet 1,000 mg PO Q6H PRN (Reason: Pain) RF: 0 losartan 100 mg Tablet 100 mg PO BEDTIME RF: 0 famotidine 20 mg Tablet 20 mg PO BEDTIME RF: 0 polyethylene glycol 3350 17 gram Powder In Packet 17 gm PO DAILY PRN (Reason: Constipation) Qty: 30 RF: 0 aspirin 81 mg Tablet,Delayed Release (Dr/Ec) 81 mg PO BID Qty: 60 RF: 0 ibuprofen 400 mg Tablet 400 mg PO Q4HR Qty: 90 RF: 0 oxycodone 5 mg Tablet 5 mg PO Q3HR PRN (Reason: Pain, Moderate (4-6)) Qty: 30 RF: 0 Referrals: Amanda Hunter MD [Primary Care Provider] -
--- NOTE | 2020-12-06 08:27 | DI.RAD.S_ITS ---
PROCEDURE: XR CHEST 1V INDICATIONS: neck pain, sob, lightheaded TECHNIQUE: One view of the chest was acquired. COMPARISON: None. FINDINGS: Surgical changes and devices: None. Lungs and pleura: Lungs are clear. No pleural effusions or pneumothorax. Mediastinum: Mediastinal contours appear normal. Heart size is normal. Bones and chest wall: No suspicious bony lesions. Overlying soft tissues appear unremarkable. IMPRESSION: No acute cardiopulmonary pathology. Dictated by: Atilio Wilde M.D. on 12/06/2020 at 8:59 Approved by: Atilio Wilde M.D. on 12/06/2020 at 8:59
[2020-12-06] MEDS: ASPIRIN 81 MG CHEW TAB 324 MG PO (08:35)
[2020-12-06] MEDS: SODIUM CHLORIDE 0.9% 1,000 ML 150 ML IV (08:36)
[2020-12-06] MEDS: ONDANSETRON 4 MG/2 ML INJ IV (08:36)
[2020-12-06] MEDS: OXYCODONE/ACETAMINOPHEN 5/325 TABLET 1 TAB PO (08:37)
[2020-12-06 08:48] LABS: Add Manual Diff / Slide Review NO; Basophils Absolute Auto 0 /uL (0-100); Basophils Percent Auto 0.7 % (0-2); Eosinophils Absolute Auto 100 /uL (0-450); Hematocrit 36.9 % (36-46); Hemoglobin 12.5 g/dL (12.0-16.0); Lymphocytes Absolute Auto 1700 /uL (1100-4500); Lymphocytes Percent Auto 25.8 % (25-40); Mean Corpuscular HGB Conc 33.8 % (30-36); Mean Corpuscular Hemoglobin 30.2 PG (26-34); Mean Corpuscular Volume 89.3 fL (80-100); Monocytes Absolute Auto 600 /uL (0-900); Monocytes Percent Auto 9.4 % (3-14); Neutrophils Absolute Auto 4100 /uL (1500-7000); Neutrophils Percent Auto 63.1 % (50-75); Platelet Count 260 X10^3/uL (150-400); Red Blood Cell Count 4.13 X10^6/uL (4.0-5.2); White Blood Cell Count 6.5 X10^3/uL (4.5-11.0)
[2020-12-06 08:55] LABS: Alanine Aminotransferase 181 IU/L (<35); Albumin 4.1 g/dL (3.5-5.0); Albumin Globulin Ratio 1.4 (1.0-2.8); Alkaline Phosphatase 101 U/L (38-126); Aspartate Aminotransferase 373 IU/L (14-36); Bilirubin Total 0.7 mg/dL (0.2-1.3); Blood Urea Nitrogen 17 mg/dL (7-17); Calcium 9.4 mg/dL (8.4-10.2); Carbon Dioxide 32 mmol/L (22-32); Chloride 101 mmol/L (98-107); Creatine Kinase 64 U/L (30-135); D Dimer 292 ng/mL (<230); Estimated Glomerular Filt Rate > 60.0 mL/min (>60); Glucose 79 mg/dL (80-110); HEMOLYSIS < 15 (0-50); Lipase 314 U/L (23-300); Potassium 3.9 mmol/L (3.4-5.1); Sodium 140 mmol/L (137-145); Total Protein 7.1 g/dL (6.3-8.2)
[2020-12-06 09:07] LABS: NT-proBNP (BNP-Adult 18+) 206 pg/mL (<125); Troponin I < 0.012 ng/mL (0.01-0.034)
--- NOTE | 2020-12-06 09:57 | DI.CT.S_ITS ---
PROCEDURE: CT ABDOMEN PELVIS W CON INDICATIONS: abd pain, + nausea, hx cholecyst, elevated lft TECHNIQUE: After the administration of oral and IV contrast, axial sections were acquired from the lung bases to the pubic symphysis. Coronal and sagittal reformats were performed. For radiation dose reduction, the following was used: automated exposure control, adjustment of mA and/or kV according to patient size. COMPARISON: None. FINDINGS: Image quality: There is artifact associated with the metallic hardware. Artifact from the metallic hardware is reduced by metal reconstruction algorithm. Lung bases: Unremarkable. Heart: No significant findings. ABDOMEN: Liver: Unremarkable. Gallbladder: Removed. Biliary ducts: Unremarkable. Pancreas: Unremarkable. Spleen: Unremarkable. Adrenal Glands: Unremarkable. Kidneys and Ureters: At the superior pole of the left kidney, there is a simple appearing cyst seen that measures water density and 2.8 cm. Smaller simple appearing cysts are also seen within the left kidney. The kidneys demonstrate normal size and enhance symmetrically. There is no hydronephrosis. Stomach and Bowel: There is a moderate amount of stool seen within the colon. The colon is tortuous. No dilated loops of small bowel are seen. There is a fluid filled stomach seen. Peritoneum: No abnormal intraperitoneal fluid. No free air. Ventral Wall: No hernia. Abdominal Nodes: No retroperitoneal or mesenteric adenopathy by size criteria. Vessels: Aorta and inferior vena cava are normal in size. PELVIS: Pelvic Organs: A vaginal pessary can be seen. The uterus appears normal for age. No adnexal masses are seen. Bladder: Unremarkable. Pelvic Nodes: No enlarged lymph nodes. Miscellaneous: There is a fat containing left groin hernia. Bones: Moderate levoconvex scoliosis this is seen. Right hip arthroplasty hardware can be seen. Generalized relatively prominent degenerative changes are seen. IMPRESSION: There is a moderate amount of stool seen within the colon. Please correlate with an underlying history of constipation. A fluid filled stomach can be seen. No dilated loops of small bowel are seen. Normal appearing liver. Incidental note is made of: Cholecystectomy Simple appearing left renal cysts Vaginal pessary Fat containing left groin hernia Moderate levoconvex scoliosis Right hip arthroplasty hardware Dictated by: James Hemphill M.D. on 12/06/2020 at 9:03 Approved by: James Hemphill M.D. on 12/06/2020 at 9:08
[2020-12-06 10:47] LABS: RBC Urine 1-5/HPF (0-5/HPF); Squamous Epithelial Cell Urine 1-5 /HPF (0-5/HPF); WBC Urine 1-5/HPF (0-5/HPF)
[2020-12-06 10:48] LABS: Bacteria Urine Moderate (10-30); Culture Indicated Urine Cult Not Indicated
== END 2020-12-06 10:46 | disposition home or self-care (01) ==
PROVIDERS: Emergency Provider Emergency Medicine; PCP Internal Medicine
DX: M54.2 Cervicalgia (principal); N28.1 Cyst of kidney, acquired; K40.90 Unilateral inguinal hernia, without obstruction or gangrene, not specified as recurrent; R07.9 Chest pain, unspecified; R10.9 Unspecified abdominal pain; R11.0 Nausea
CPT/HCPCS: 71045; 74177; 80053; 81003; 81015; 82550; 83690; 83880; 84484; 85025; 85379; 93005; 96361; 96374; 99284; J2405

== ENCOUNTER → 2021-09-05 11:11 | Outpatient (CLI) | payer OTHER, SELFPAY ==
[2019-08-10 11:44] VITALS: BMI 22.7
== END ==
PROVIDERS: PCP Internal Medicine; Referring Provider Internal Medicine; Visit Provider Internal Medicine
DX: Z78.0 Asymptomatic menopausal state (principal); Z13.820 Encounter for screening for osteoporosis
CPT/HCPCS: 77080; 77081

== ENCOUNTER → 2021-12-04 07:46 | Outpatient (CLI) | payer OTHER, SELFPAY ==
[2019-08-10 11:44] VITALS: BMI 22.7
[2021-11-22 09:10] VITALS: BMI 22.7
--- NOTE | 2021-12-04 | DI.MG.S_ITS ---
BILATERAL DIGITAL SCREENING MAMMOGRAM 3D/2D WITH CAD: 12/04/2021 CLINICAL: Routine screening. Comparison is made to exams dated: 12/02/2020 mammogram, 07/15/2016 mammogram, and 07/14/2015 mammogram - [facility]. Both breasts are heterogeneously dense, which may obscure small masses (category c / 51-75% glandular tissue). Current study was also evaluated with a Computer Aided Detection (CAD) system. There are benign calcifications in both breasts. No significant masses, calcifications, or other findings are seen in either breast. There has been no significant interval change. IMPRESSION: BENIGN There is no mammographic evidence of malignancy. A 1 year screening mammogram is recommended. Based on the Tyrer Cuzick model (a risk assessment model) the patient's lifetime risk is 5.4% and her 10 year risk is 5.4%. According to the ACR, ACS, and NCCN guidelines, an annual breast MRI exam along with mammogram is recommended if the patient's lifetime risk is 20% or greater. This exam was interpreted at Station ID: [id number]. NOTE: For mammograms, a report in lay terms will be sent to the patient. Approximately 15% of breast malignancies will not be visualized mammographically. In the management of a palpable breast mass, a negative mammogram must not discourage biopsy of a clinically suspicious lesion. Electronically Signed By: Pedro baker/isaac:12/04/2021 08:53:31 letter sent: Normal Exam ACR BI-RADS Category 2: Benign Finding(s) 3342F
== END ==
PROVIDERS: PCP Internal Medicine; Referring Provider Internal Medicine; Visit Provider Internal Medicine
DX: Z12.31 Encounter for screening mammogram for malignant neoplasm of breast (principal)
CPT/HCPCS: 77063; 77067

== ENCOUNTER → 2021-12-18 12:34 | Outpatient (CLI) | payer OTHER, SELFPAY ==
[2021-11-22 09:10] VITALS: BMI 22.7
[2021-12-18 12:55] LABS: COVID19 -Nasal RAPID Negative (Negative)
== END ==
PROVIDERS: PCP Internal Medicine; Visit Provider Surgery
DX: Z01.812 Encounter for preprocedural laboratory examination (principal); Z20.822 Contact with and (suspected) exposure to COVID-19
CPT/HCPCS: 87635; C9803

== ENCOUNTER 2021-12-19 07:34 | Day surgery (SDC) | payer OTHER, SELFPAY ==
[2021-11-22 09:10] VITALS: BMI 22.7
[2021-12-19] VITALS (8 sets, daily range): BP systolic 97–142; BP diastolic 57–89; PULSE 69–93; RESP 9–16; TEMP 36.2–36.9; O2SAT 98–100; BMI 21.2
--- NOTE | 2021-12-19 07:52 | PM.PREOP ---
Pre-operative Note COVID-19 COVID-19 status: Negative Interval Note History & Physical reviewed/Exam performed by Physician: Yes Changes to H&P: No ASA Class (for procedural sedation): II
--- NOTE | 2021-12-19 07:52 | PM.OP.EC ---
Operative Date/Time/Diagnoses Date of procedure: 12/19/21 Pre-op diagnosis: See indication and findings Procedure & Clinicians Study performed: Colonoscopy and EGD Indications: History of GERD and history of colon polyps Surgeon: Winston Caicedo Procedure Notes Procedure in detail: After informed consent was obtained the patient was placed in left lateral decubitus position. The video upper scope was placed into the oropharynx and with the patient's help swallowed into the esophagus. The esophagus stomach and duodenum were carefully examined. On withdrawal, retroflexed view the GE junction was performed. The scope was removed. The patient tolerated the procedure well. Blood loss none Complications none Sedation propofol Findings EGD 1. Small hiatal hernia but otherwise normal esophagus 2. Normal stomach 3. Normal duodenal bulb and sweep Colonoscopy 1. Quite tortuous colon but otherwise negative colonoscopy to cecum Follow-up colonoscopy at a minimum of 7 years if in excellent health. Follow-up with Dr. Hunter for any further
--- NOTE | 2021-12-19 09:38 | SUR.PHASEII ---
Patient denied pain. Requested time to rest. Call light within reach. PO intake within reach.
== END 2021-12-19 09:56 | disposition home or self-care (01) ==
PROVIDERS: PCP Internal Medicine; Referring Provider Internal Medicine Gastroenterology; Visit Provider Internal Medicine Gastroenterology
PROC: 0DJ08ZZ Inspection of Upper Intestinal Tract, Via Natural or Artificial Opening Endoscopic (ICD-10-PCS; CPT 43235; principal; 2021-12-19 08:30)
PROC: 0DJD8ZZ Inspection of Lower Intestinal Tract, Via Natural or Artificial Opening Endoscopic (ICD-10-PCS; CPT 45378; 2021-12-19 08:30)
DX: Z12.11 Encounter for screening for malignant neoplasm of colon (principal); Z86.010 Personal history of colon polyps; K21.9 Gastro-esophageal reflux disease without esophagitis; K44.9 Diaphragmatic hernia without obstruction or gangrene
CPT/HCPCS: 43235; 45378; J2704; J3010

== ENCOUNTER → 2022-11-28 08:59 | Outpatient (CLI) | payer MEDICARE, SELFPAY ==
[2021-11-22 09:10] VITALS: BMI 22.7
--- NOTE | 2022-11-28 09:00 | DI.RAD.S_ITS ---
PROCEDURE: XR KNEE LT 3V INDICATIONS: Knee pain TECHNIQUE: 3 views of the knee were acquired. COMPARISON: [facility], CR, XR KNEE RT 1TO2V, 06/09/2018, 10:02. FINDINGS: Bones: No fractures or dislocations. Tricompartmental osteoarthritic changes with marginal spurring and moderate medial and patellofemoral joint space narrowing. No suspicious bony lesions. Soft tissues: Small joint effusion. No suspicious soft tissue calcifications. IMPRESSION: Moderate osteoarthritic changes of the left knee. Dictated by: Devante Torres M.D. on 11/28/2022 at 10:43 Approved by: Devante Torres M.D. on 11/28/2022 at 10:44
== END ==
PROVIDERS: PCP Internal Medicine; Referring Provider Nurse Practitioner Family; Visit Provider Nurse Practitioner Family
DX: M25.562 Pain in left knee (principal)
CPT/HCPCS: 73562

== ENCOUNTER → 2023-07-02 09:44 | Outpatient (CLI) | payer MEDICARE, SELFPAY ==
[2021-11-22 09:10] VITALS: BMI 22.7
--- NOTE | 2023-07-02 09:45 | DI.NM.S_ITS ---
PROCEDURE: NM BONE SCAN WHOLE BODY RADIOPHARMACEUTICAL: 22 mCi Tc-99m MDP IV. INDICATIONS: H / O R ADRIANNA / RIGHT HIP PAIN TECHNIQUE: Delayed whole-body scintigrams were obtained approximately 3-4 hours after intravenous injection of radiotracer. Anterior and posterior views were acquired from vertex to feet. Additional left and right oblique views of the hips were obtained. COMPARISON: [facility], CR, XR PELVIS WITH LATERAL HIP RIGHT, 06/18/2023, 8:57. FINDINGS: Degenerative radiotracer uptake in the shoulders, 1st CMC joints, knees and ankles. Radiotracer uptake associated with the greater trochanter of the right femur. Photopenic right hip arthroplasty. IMPRESSION: Radiotracer uptake associated with the greater trochanter of the right femur, probably due to hypertrophic bone within this region. Loosening is considered less likely. Dictated by: Jose Hill M.D. on 07/02/2023 at 16:03 Approved by: Jose Hill M.D. on 07/02/2023 at 16:04
== END ==
LOC: NUCM 09:44
PROVIDERS: PCP Internal Medicine; Referring Provider Orthopaedic Surgery; Visit Provider Orthopaedic Surgery
DX: M25.551 Pain in right hip (principal); Z96.641 Presence of right artificial hip joint
CPT/HCPCS: 78306; A9503

== ENCOUNTER → 2023-10-08 14:29 | Outpatient (CLI) | payer MEDICARE, SELFPAY ==
[2021-11-22 09:10] VITALS: BMI 22.7
--- NOTE | 2023-10-08 | DI.MG.S_ITS ---
BILATERAL DIGITAL SCREENING MAMMOGRAM 3D/2D WITH CAD: 10/08/2023 CLINICAL: Routine screening. Comparison is made to exams dated: 12/04/2021 mammogram, 12/02/2020 mammogram, 07/15/2016 mammogram, and 07/14/2015 mammogram - [facility]. Both breasts are heterogeneously dense, which may obscure small masses (category c / 51-75% glandular tissue). Current study was also evaluated with a Computer Aided Detection (CAD) system. There is a possible focal asymmetry in the right breast at 11 o'clock middle depth. No other significant masses, calcifications, or other findings are seen in either breast. IMPRESSION: INCOMPLETE: NEEDS ADDITIONAL IMAGING EVALUATION The possible focal asymmetry in the right breast is indeterminate. Additional views with possible ultrasound are recommended. Based on the Tyrer Cuzick model (a risk assessment model) the patient's lifetime risk is 4.5% and her 10 year risk is 0.0%. According to the ACR, ACS, and NCCN guidelines, an annual breast MRI exam along with mammogram is recommended if the patient's lifetime risk is 20% or greater. This exam was interpreted at Station ID: [id number]. NOTE: For mammograms, a report in lay terms will be sent to the patient. Approximately 15% of breast malignancies will not be visualized mammographically. In the management of a palpable breast mass, a negative mammogram must not discourage biopsy of a clinically suspicious lesion. Electronically Signed By: Maikel Gotti M.D. slc/:10/08/2023 16:06:47 letter sent: Additional Imaging Needed ACR BI-RADS Category 0: Incomplete [id number]
== END ==
PROVIDERS: PCP Internal Medicine; Referring Provider Internal Medicine; Visit Provider Internal Medicine
DX: Z12.31 Encounter for screening mammogram for malignant neoplasm of breast (principal); R92.333 Mammographic heterogeneous density, bilateral breasts
CPT/HCPCS: 77063; 77067

== ENCOUNTER → 2023-10-21 08:55 | Outpatient (CLI) | payer MEDICARE, SELFPAY ==
[2021-11-22 09:10] VITALS: BMI 22.7
--- NOTE | 2023-10-21 08:56 | DI.MG.S_ITS ---
UNILATERAL RIGHT DIGITAL DIAGNOSTIC MAMMOGRAM 3D/2D WITH ADDITIONAL VIEWS: 10/21/2023 CLINICAL: Additional evaluation requested from prior study. Comparison is made to exams dated: 12/04/2021 mammogram, 12/02/2020 mammogram, and 07/15/2016 mammogram - [facility]. The breasts are heterogeneously dense, which may obscure small masses (category c / 51-75% glandular tissue). With focal spot compression, and additional views, the abnormality seen on screening mammography in the right breast at 11 o'clock in the middle depth resolved. No significant masses, calcifications, or other findings are seen in the breast. IMPRESSION: INCOMPLETE: NEED ADDITIONAL IMAGING EVALUATION Resolution of screening mammography abnormality with additional views. Ultrasound evaluation to confirm resolution is recommended and was performed immediately following this exam. Based on the Tyrer Cuzick model (a risk assessment model) the patient's lifetime risk is 4.5% and her 10 year risk is 0.0%. According to the ACR, ACS, and NCCN guidelines, an annual breast MRI exam along with mammogram is recommended if the patient's lifetime risk is 20% or greater. This exam was interpreted at Station ID: [id number]. NOTE: For mammograms, a report in lay terms will be sent to the patient. Approximately 15% of breast malignancies will not be visualized mammographically. In the management of a palpable breast mass, a negative mammogram must not discourage biopsy of a clinically suspicious lesion. Electronically Signed By: Sugey funes/:10/21/2023 09:33:16 ACR BI-RADS Category 0: Incomplete: Need Additional Imaging Evaluation 3340F
--- NOTE | 2023-10-21 08:56 | DI.US.S_ITS ---
LIMITED ULTRASOUND OF RIGHT BREAST: 10/21/2023 CLINICAL: Patient returns today to evaluate a focal asymmetry in the right breast. Comparison is made to exams dated: 10/21/2023 mammogram, 10/08/2023 mammogram, and 12/04/2021 mammogram - [facility]. Real-time ultrasound of the right breast 12 o'clock region was performed. Lawson scale images of the real-time examination were reviewed. No significant abnormalities were seen sonographically in the right breast. Specifically, no finding to correspond to the patient's resolved screening mammographic abnormality. IMPRESSION: NEGATIVE There is no sonographic correlate to the patient's resolved mammographic asymmetry and no evidence of malignancy. Return to annual mammogram screening schedule is recommended. Findings and recommendations were conveyed to the patient at time of exam. This exam was interpreted at Station ID: [id number]. Electronically Signed By: Sugey funes/:10/21/2023 09:34:02 letter sent: Normal Exam ACR BI-RADS Category 1: Negative [id number]
== END ==
PROVIDERS: PCP Internal Medicine; Referring Provider Internal Medicine; Visit Provider Internal Medicine
DX: R92.8 Other abnormal and inconclusive findings on diagnostic imaging of breast (principal); R92.333 Mammographic heterogeneous density, bilateral breasts
CPT/HCPCS: 76642; 77065; G0279

== ENCOUNTER → 2024-06-14 09:25 | Outpatient (CLI) | payer MEDICARE, SELFPAY ==
[2021-11-22 09:10] VITALS: BMI 22.7
--- NOTE | 2024-06-14 09:26 | DI.RAD.S_ITS ---
PROCEDURE: XR KNEE LT 3V INDICATIONS: Left knee strain TECHNIQUE: 3 views of the knee were acquired. COMPARISON: [facility], CR, XR KNEE RT 1TO2V, 06/09/2018, 10:02. FINDINGS: Bones: No fractures or dislocations. No suspicious bony lesions. Moderate to severe medial and mild to moderate lateral tibiofemoral and moderate to severe patellofemoral compartment narrowing with associated osteophytosis. Soft tissues: No joint effusion. No suspicious soft tissue calcifications. IMPRESSION: KL grade 3 tricompartmental osteoarthritis without evidence of acute osseous abnormality. Dictated by: Blair Calles M.D. on 06/14/2024 at 23:52 Approved by: Blair Calles M.D. on 06/14/2024 at 23:53
== END ==
LOC: RAD 09:26
PROVIDERS: PCP Internal Medicine; Referring Provider Nurse Practitioner Family; Visit Provider Nurse Practitioner Family
DX: S86.912A Strain of unspecified muscle(s) and tendon(s) at lower leg level, left leg, initial encounter (principal); M17.12 Unilateral primary osteoarthritis, left knee; X58.XXXA Exposure to other specified factors, initial encounter
CPT/HCPCS: 73562

== ENCOUNTER 2024-08-04 09:47 | Emergency (ER) | payer MEDICARE, SELFPAY ==
[2021-11-22 09:10] VITALS: BMI 22.7
[2024-08-04 09:50] VITALS: BP 116/51; PULSE 67; RESP 14; O2SAT 98; BMI 23.3
--- NOTE | 2024-08-04 09:53 | DI.RAD.S_ITS ---
PROCEDURE: XR CHEST 1V INDICATIONS: Chest Pain TECHNIQUE: One view of the chest was acquired. COMPARISON: [facility], CR, XR CHEST 1V, 12/06/2020, 8:39. FINDINGS: Surgical changes and devices: None. Lungs and pleura: Lungs are clear. No pleural effusions or pneumothorax. Mediastinum: Mediastinal contours appear normal. Heart size is normal. Bones and chest wall: No suspicious bony lesions. Overlying soft tissues appear unremarkable. IMPRESSION: No acute cardiopulmonary abnormality is seen. Dictated by: Devante Torres M.D. on 08/04/2024 at 11:39 Approved by: Devante Torres M.D. on 08/04/2024 at 11:39
--- NOTE | 2024-08-04 10:01 | EKG_ITS ---
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
--- NOTE | 2024-08-04 10:20 | ED.SYNCOPE ---
HPI - Syncope General Chief Complaint: Syncope Stated Complaint: fell, syncope, abd pain Time Seen by Provider: 08/04/24 10:20 Mode of arrival: Wheelchair History of Present Illness HPI narrative: Patient is a 78-year-old female past medical history of hypertension hyperlipidemia presenting from walk-in clinic for evaluation of syncopal event. States that she has been having diarrhea and had a syncopal event hitting her face. States that she is not on any blood thinners just saying that she feels little dizzy right now in tired. Denies any headache visual disturbances chest pain shortness breath fever chills nausea vomiting abdominal pain or any other GI/ symptoms time. She states that she is not having any abdominal pain at this time. States that she did syncopized after she moved her bowels. States that she feels better. Related Data Home Medications ?Medication ?Instructions ?Recorded ?Confirmed atorvastatin 40 mg tablet 40 mg PO BEDTIME 05/26/18 06/14/24 cholecalciferol (vitamin D3) 25 1,000 unit PO DAILY 06/09/18 06/14/24 mcg (1,000 unit) capsule (Vitamin D3) coenzyme Q10 200 mg capsule (Co 1,000 mg PO DAILY 06/09/18 06/14/24 Q-10) omega 6-mex-kgu-fish oil 1,000 mg 1 cap PO DAILY 06/09/18 06/14/24 (120 mg-180 mg) capsule (Fish Oil) acetaminophen 500 mg tablet 1,000 mg PO Q6H PRN Pain 08/04/19 06/14/24 (Acetaminophen Extra Strength) famotidine 20 mg tablet 20 mg PO BEDTIME 08/04/19 06/14/24 losartan 100 mg tablet 100 mg PO BEDTIME 08/04/19 06/14/24 fluocinonide 0.05 % topical topical 08/28/23 06/14/24 solution fluorouracil 5 % topical cream applic topical 08/28/23 06/14/24 losartan 50 mg tablet 50 mg PO DAILY 12/20/23 06/14/24 Previous Rx's ?Medication ?Instructions ?Recorded ibuprofen 400 mg tablet 400 mg PO Q4HR #90 tabs 08/10/19 erythromycin 5 mg/gram (0.5 %) eye 0.5 inch ophthalmic (eye) 5XD 12/20/23 ointment Corneal abrasion #3.5 grams Allergies Allergy/AdvReac Type Severity Reaction Status Date / Time No Known Drug Allergies Allergy Verified 08/04/24 09:50 Review of Systems Review of Systems Narrative: General: Positive ground level fall Denies fever, chills, weight loss HEENT: Denies headache, eye drainage, eye irritation, head trauma, sore throat, voice change Cardiovascular: Denies any chest pain, palpitations, tachycardia Respiratory: Denies any shortness of breath, cough, wheeze, stridor GI/: Positive diarrhea Denies any abdominal pain, nausea, vomiting, bright red blood per rectum, melanotic stools, urinary frequency, urinary retention, dysuria, hematuria MSK: Denies any joint pain, muscle pains, swelling Skin: Denies any rashes, lesions, discoloration Neuro: Positive syncope, Denies any headache, lightheadedness, dizziness,weakness Psych: Denies SI/HI Patient History Medical History Uterovaginal prolapse Lower back pain Vertigo (~2013) Neuropathy Osteoarthritis HTN (hypertension) GERD (gastroesophageal reflux disease) Hemorrhoids Prolapsed bladder HLD (hyperlipidemia) BCC (basal cell carcinoma), face Surgical History History of arthroplasty of right knee (06/09/18) Hx of dilation and curettage Hx of eye surgery (~08/2017) Status post bilateral cataract extraction Hx of eye surgery Hx of cholecystectomy Hx of repair of patent ductus arteriosus (~1950) Hx of arthroscopy of right knee (~2003) Status post arthroscopy History of carpal tunnel repair Status post cholecystectomy Family History Brother Age: 75 Skin cancer (melanoma) Sister Age: 81 Skin cancer (melanoma) Sister Age: 73 Skin cancer (melanoma) Social History household members: spouse Smoking Status: Unknown if ever smoked alcohol intake: current Smoking Status: Unknown if ever smoked alcohol intake frequency: a few times a week Exam Narrative Exam Narrative: General: Cooperative, well-developed, not in acute distress HEENT: Abrasion noted to the right side of the upper lip but no laceration, PERRLA, normal sclera, eyelids normal Neck: Active full range of motion, atraumatic Chest: Normal to inspection, negative crepitus, no overlying erythema ecchymosis Respiratory: Normal respiratory effort, not in acute respiratory distress, clear to auscultation bilaterally negative cough, wheeze, tachypnea, rhonchi, rales Cardiology: Regular rate rhythm negative gallop, murmur, rubs GI/: No tenderness to palpation, soft, non rigid, normal to inspection, exam deferred MSK: Full active range of motion in all 4 extremities, atraumatic, no tenderness to palpation of any bony prominences Skin: No rashes or lesions noted Neuro: Alert awake oriented x3, moves all 4 extremities spontaneously, cranial nerves intact, able to answer all questions appropriately follows commands appropriately Psych: Cooperative, negative suicidal or homicidal ideations Initial Vital Signs Initial Vital Signs: Vital Signs Pulse Rate 67 08/04/24 09:50 Respiratory Rate 14 08/04/24 09:50 Blood Pressure 116/51 L 08/04/24 09:50 Pulse Oximetry 98 08/04/24 09:50 Oxygen Delivery Method Room Air 08/04/24 09:50 Course Orders Ordered: ED Orders 08/04/24 09:53 XR chest 1V Stat EKG-12 Lead Stat 08/04/24 10:10 Complete Blood Count AUTO DIFF Stat Comprehensive Metabolic Panel Stat Lipase Stat Magnesium Stat NT-proBNP (BNP-Adult 18+) Stat PTT Partial Thromboplastin [place] Stat Prothrombin Time INR Stat Troponin & CK Cardiac Panel Stat 08/04/24 10:21 CT cervical spine wo con Stat CT head/brain wo con Stat Discontinued Medications Sodium Chloride (Normal Saline 0.9%) 1,000 mls @ 1,000 mls/hr IV BOLUS ONE Stop: 08/04/24 11:20 Last Admin: 08/04/24 10:45 Dose: 1,000 mls/hr Documented By: RB Vital Signs Vital signs: Vital Signs - 8 hr 08/04/24 09:50 Pulse Rate 67 Respiratory Rate 14 Blood Pressure 116/51 L Pulse Oximetry 98 Oxygen Delivery Method Room Air MDM - Syncope Differential Diagnosis Differential diagnosis: Likely syncope due to orthostatic hypotension, vasovagal syncope, complete atrioventricular block, subarachnoid hemorrhage and dehydration Lab Data 08/04/24 10:10 08/04/24 10:10 Labs: Lab Results 08/04/24 Range/Units 10:10 WBC 7.5 (4.5-11.0) X10^3/uL RBC 3.98 L (4.0-5.2) X10^6/uL Hgb 12.2 (12.0-16.0) g/dL Hct 35.9 L (36-46) % MCV 90.3 (80-100) fL MCH 30.7 (26-34) PG MCHC 34.0 (30-36) % RDW 14.5 (11.6-14.8) % Plt Count 259 (150-400) X10^3/uL Neut % (Auto) 74.0 (50-75) % Lymph % (Auto) 17.1 L (25-40) % Troup % (Auto) 7.9 (3-14) % Eos % (Auto) 0.5 L (2-4) % Baso % (Auto) 0.5 (0-2) % Neut # (Auto) 5500 (8540-3285) /uL Lymph # (Auto) 1300 (3427-2734) /uL Troup # (Auto) 600 (0-900) /uL Eos # (Auto) 0 (0-450) /uL Baso # (Auto) 0 (0-100) /uL PT 11.1 (9.4-12.5) SECONDS INR 1.0 (0.9-1.3) APTT 31 (25.1-36.5) SECONDS Sodium 135 L (137-145) mmol/L Potassium 4.3 (3.4-5.1) mmol/L Chloride 101 (98-107) mmol/L Carbon Dioxide 27 (22-32) mmol/L BUN 27 H (7-17) mg/dL Creatinine 0.90 (0.52-1.04) mg/dL Estimated GFR > 60 (>60) mL/min BUN/Creatinine Ratio 30.0 H (6-22) Glucose 90 (70-99) mg/dL Calcium 9.6 (8.4-10.2) mg/dL Magnesium 1.8 (1.6-2.3) mg/dL Total Bilirubin 0.6 (0.2-1.3) mg/dL AST 38 H (14-36) IU/L ALT 23 (<35) IU/L Alkaline Phosphatase 73 (38-126) U/L Total Creatine Kinase 78 (30-135) U/L Troponin I < 0.012 (0.01-0.034) ng/mL NT-Pro-B Natriuret Pep 326 (<450) pg/mL Total Protein 7.6 (6.3-8.2) g/dL Albumin 4.4 (3.5-5.0) g/dL Globulin 3.2 (1.7-4.1) g/dL Albumin/Globulin Ratio 1.4 (1.0-2.8) Lipase 161 (23-300) U/L Imaging Data CT scan - head: Radiologist's Impression: [address] [address] [address] Scan Report Signed Patient: Beverley Reese MR#: [id number] : 1945 Acct:[id number] Age/Sex: 78 / F Date of Service: 08/04/24 Loc: ED Accession Number: [id number] Procedure: CT head/brain wo con Ordering Provider: Jesus Baker D.O. PROCEDURE: CT HEAD/BRAIN WO CON INDICATIONS: Trauma, syncope TECHNIQUE: Noncontrast 4.5 mm thick angled axial sections acquired from the foramen magnum to the vertex, with coronal and sagittal reformats. For radiation dose reduction, the following was used: automated exposure control, adjustment of mA and/or kV according to patient size. COMPARISON: None. FINDINGS: Image quality: Diagnostic. CSF spaces: Basal cisterns are patent. No extra-axial fluid collections. The ventricles are symmetric in size and shape. Brain: No intracranial bleeds or mass effect. There is cerebral volume loss, with resultant ventricular and sulcal prominence. There are periventricular and deep white matter chronic small vessel ischemic changes. There is intracranial internal carotid artery atherosclerosis. Skull and face: Calvarium and visualized facial bones appear intact, without suspicious lesions. Sinuses: Visualized sinuses and mastoids are clear. IMPRESSION: No acute intracranial pathology. CT - cervical spine: Radiologist's Impression: [address] [address] [address] Scan Report Signed Patient: Beverley Reese MR#: [id number] : 1945 Acct:[id number] Age/Sex: 78 / F Date of Service: 08/04/24 Loc: ED Accession Number: [id number] Procedure: CT cervical spine wo con Ordering Provider: Jesus Baker D.O. PROCEDURE: CT CERVICAL SPINE WO CON INDICATIONS: trauma, syncope TECHNIQUE: Noncontrast 3 mm thick sections acquired from the skull base to the T4 level. Sagittal and coronal reformats were then constructed. For radiation dose reduction, the following was used: automated exposure control, adjustment of mA and/or kV according to patient size. COMPARISON: None. FINDINGS: Image quality: Excellent. Bones: No fractures or dislocations. Diffuse osteopenia. Prominent degenerative anterolisthesis of C7 on T1 measuring 4 mm secondary to facet arthropathy. Severe disc height loss and uncovertebral joint hypertrophy at C5-C6. Severe bilateral foraminal narrowing at this level as well as severe left foraminal narrowing C4-C5. Prominent left-sided facet arthropathy. Visualized superior ribs are intact. Soft tissues: Prevertebral soft tissues are normal in thickness. No paravertebral hematomas. No apical pneumothoraces. IMPRESSION: No displaced fracture or traumatic subluxation. Cervical spondylosis. Chest x-ray: Radiologist's Impression: [place] [address] XRay Report Signed Patient: Beverley Reese MR#: [id number] : 1945 Acct:[id number] Age/Sex: 78 / F Date of Service: 08/04/24 Loc: ED Accession Number: [id number] Procedure: XR chest 1V Ordering Provider: Jesus Baker D.O. PROCEDURE: XR CHEST 1V INDICATIONS: Chest Pain TECHNIQUE: One view of the chest was acquired. COMPARISON: [facility], , XR CHEST 1V, 12/06/2020, 8:39. FINDINGS: Surgical changes and devices: None. Lungs and pleura: Lungs are clear. No pleural effusions or pneumothorax. Mediastinum: Mediastinal contours appear normal. Heart size is normal. Bones and chest wall: No suspicious bony lesions. Overlying soft tissues appear unremarkable. IMPRESSION: No acute cardiopulmonary abnormality is seen. ECG Data Interpretation: EKG interpreted ED physician sinus at 66 beats per minute QTC [address] changes no STEMI MDM Narrative Medical decision making narrative: Patient is a 78-year-old female with a past medical history of hypertension presenting from home for evaluation of syncopal event and ground level fall. She states that this morning and last night she had some episodes of diarrhea, state that this morning after moving her bowels she stood up felt lightheaded dizzy and passed out. States that she woke up with little cut her top right lip otherwise feeling normal. Went to the walk-in clinic but it was instructed come into the ED for further evaluation treatment. EKG nonischemic in nature, patient had lab work and CT scan performed here without any acute findings, troponin negative, commander of lab work unremarkable. Most likely patient had vasovagal/orthostatic syncope given episodes of diarrhea. She was instructed follow up with the primary care in outpatient setting she verbalized understanding of this and agrees to being discharged home with outpatient follow up Discharge Plan Departure Patient Disposition: Home Clinical Impression: Syncope Instructions: DI for Syncope in Adults (Fainting) Activity Restrictions/Additional Instructions: Please follow up with the primary care doctor Please read the discharge instructions sheet carefully and bring all papers to all doctor follow-up visits, as it may contain information that your doctor may want to see. Disease processes change and evolve, if your symptoms worsen or if you develop any new symptoms that are concerning to you please return for evaluation. Your evaluation today does not show any evidence of any life-threatening/serious illnesses requiring admission to the hospital or surgery. Please follow-up with your doctor for re-evaluation in approximately 1 day. Seek immediate medical attention for any worrisome symptoms. *If you do not have a primary care provider please contact the [facility] Resource line at [phone]. They will ask some questions about your medical history and help get you set up with a doctor in the community. Prescriptions: No Action losartan 50 mg tablet 50 mg PO DAILY erythromycin 5 mg/gram (0.5 %) ointment 0.5 inch ophthalmic (eye) 5XD Qty: 3.5 0RF fluocinonide 0.05 % solution topical fluorouracil 5 % cream topical atorvastatin 40 mg Tablet 40 mg PO BEDTIME cholecalciferol (vitamin D3) [Vitamin D3] 1,000 unit Capsule 1,000 unit PO DAILY coenzyme Q10 [Co Q-10] 200 mg Capsule 1,000 mg PO DAILY omega 8-tlu-wch-fish oil [Fish Oil] 1,000 mg (120 mg-180 mg) Capsule 1 cap PO DAILY acetaminophen [Acetaminophen Extra Strength] 500 mg Tablet 1,000 mg PO Q6H PRN (Reason: Pain) losartan 100 mg Tablet 100 mg PO BEDTIME famotidine 20 mg Tablet 20 mg PO BEDTIME ibuprofen 400 mg Tablet 400 mg PO Q4HR Qty: 90 0RF Referrals: Amanda Hunter MD [Primary Care Provider, Internal Medicine] Stand Alone Forms: Patient Portal/API
[2024-08-04 10:24] LABS: Add Manual Diff / Slide Review NO; Basophils Absolute Auto 0 /uL (0-100); Basophils Percent Auto 0.5 % (0-2); Eosinophils Absolute Auto 0 /uL (0-450); Eosinophils Percent Auto 0.5 % (2-4); Hematocrit 35.9 % (36-46); Hemoglobin 12.2 g/dL (12.0-16.0); Lymphocytes Absolute Auto 1300 /uL (1100-4500); Lymphocytes Percent Auto 17.1 % (25-40); Mean Corpuscular Hemoglobin 30.7 PG (26-34); Mean Corpuscular Volume 90.3 fL (80-100); Monocytes Absolute Auto 600 /uL (0-900); Monocytes Percent Auto 7.9 % (3-14); Neutrophils Absolute Auto 5500 /uL (1500-7000); Platelet Count 259 X10^3/uL (150-400); Red Blood Cell Count 3.98 X10^6/uL (4.0-5.2); Red Cell Distribution Width 14.5 % (11.6-14.8); White Blood Cell Count 7.5 X10^3/uL (4.5-11.0)
[2024-08-04 10:28] LABS: Prothrombin Time 11.1 SECONDS (9.4-12.5)
[2024-08-04 10:31] LABS: PTT Partial Thromboplastin Tim 31 SECONDS (25.1-36.5)
[2024-08-04 10:41] LABS: Alanine Aminotransferase 23 IU/L (<35); Albumin 4.4 g/dL (3.5-5.0); Albumin Globulin Ratio 1.4 (1.0-2.8); Alkaline Phosphatase 73 U/L (38-126); Aspartate Aminotransferase 38 IU/L (14-36); Bilirubin Total 0.6 mg/dL (0.2-1.3); Blood Urea Nitrogen 27 mg/dL (7-17); Calcium 9.6 mg/dL (8.4-10.2); Carbon Dioxide 27 mmol/L (22-32); Chloride 101 mmol/L (98-107); Creatine Kinase 78 U/L (30-135); Estimated Glomerular Filt Rate > 60 mL/min (>60); Globulin 3.2 g/dL (1.7-4.1); Glucose 90 mg/dL (70-99); HEMOLYSIS < 15 (0-50); Lipase 161 U/L (23-300); Magnesium 1.8 mg/dL (1.6-2.3); Potassium 4.3 mmol/L (3.4-5.1); Sodium 135 mmol/L (137-145); Total Protein 7.6 g/dL (6.3-8.2)
[2024-08-04] MEDS: SODIUM CHLORIDE 0.9% 1,000 ML 1000 ML IV (10:45)
[2024-08-04 10:52] LABS: NT-proBNP (BNP-Adult 18+) 326 pg/mL (<450); Troponin I < 0.012 ng/mL (0.01-0.034)
[2024-08-04 11:00] VITALS: BP 131/64; PULSE 65; RESP 20; O2SAT 97
[2024-08-04 11:30] VITALS: BP 155/71; PULSE 68; RESP 22; O2SAT 97
[2024-08-04 12:00] VITALS: BP 151/72; PULSE 67; RESP 20; O2SAT 97
[2024-08-04 12:30] VITALS: BP 156/76; PULSE 66; RESP 24; O2SAT 96
== END 2024-08-04 12:45 | disposition home or self-care (01) ==
PROVIDERS: Emergency Provider Student in an Organized Health Care Education/Training Program; PCP Internal Medicine
DX: R55 Syncope and collapse (principal); R42 Dizziness and giddiness; S01.511A Laceration without foreign body of lip, initial encounter; W18.30XA Fall on same level, unspecified, initial encounter; R19.7 Diarrhea, unspecified
CPT/HCPCS: 36415; 70450; 71045; 72125; 80053; 82550; 83690; 83735; 83880; 84484; 85025; 85610; 85730; 93005; 96360; 96361; 99284

== ENCOUNTER → 2024-10-21 08:27 | Outpatient (CLI) | payer MEDICARE, SELFPAY ==
[2021-11-22 09:10] VITALS: BMI 22.7
--- NOTE | 2024-10-21 08:28 | DI.MG.S_ITS ---
MM screening mammo BI: 10/21/2024. BI-RADS: 1 CLINICAL: 79-year old female for bilateral screening mammogram. Tyrer-Cuzick lifetime risk of 2.5%. No personal or first-degree family history of breast cancer. PRIOR EXAMS 10/08/2023, 12/04/2021, 12/02/2020, 07/15/2016. MAMMOGRAPHY TECHNIQUE: 2D and 3D (tomosynthesis) digital mammographic views obtained, with additional images as needed for full coverage. Current study was also evaluated with a Computer Aided Detection (CAD) system. DENSITY C. The breasts are heterogeneously dense, which may obscure small masses. MAMMOGRAPHY FINDINGS Bilateral: No suspicious mass, asymmetry, microcalcification, or other abnormality seen. IMPRESSION: * No evidence of malignancy. RECOMMENDATIONS Bilateral * Annual screening mammography. OVERALL ASSESSMENT CATEGORY BI-RADS-1: Negative. The [employer] recommends annual screening mammography beginning at age 40 for women with average risk of breast cancer. ELECTRONICALLY SIGNED: Mariaelena Mcgee M.D. on 10/22/2024 at 11:33:36 PM PT Interpreting Station ID: [id number]
== END ==
PROVIDERS: PCP Internal Medicine; Referring Provider Internal Medicine; Visit Provider Internal Medicine
DX: Z12.31 Encounter for screening mammogram for malignant neoplasm of breast (principal); R92.333 Mammographic heterogeneous density, bilateral breasts
CPT/HCPCS: 77063; 77067